=== PATIENT | female | born 1975 | race African-American/Black ===

== ENCOUNTER 2016-04-08 03:10 | Inpatient (IN) | payer OTHER, MEDICARE ==
[~2016-04-08] VITALS: Ht 160 cm; Wt 54.4 kg
[~2016-04-08 03:10] MED LIST: BACLOFEN10 M1 PO; CRANBERRY500 M1 PO; DAILY MULTIPLE1 EACH PO; ESCITALOPRAM OX10 MG PO; FERROUS SULFAT325 M3 PO; SENNA8.6 M3 PO; TECFIDERA240 M2 PO; VITAMIN D31000 UNI1 PO
--- NOTE | 2016-04-23 20:07 | History & Physical ---
TABITHA ARTEAGA,IVAN 04/23/161918: General Information and HPI MD Statement: I have seen and personally examined CHIKIS CROWDER and documented this H&P. The patient is a 41 year old F who presented with a patient stated chief complaint of [S/P SURGERY]. Source of Information: patient, old records Exam Limitations: clinical condition History of Present Illness: This is a 41 y/o woman with a PMH of Multiple Sclerosis, wheelchair bound, who underwent placement of a buttock flap on 04/23/2016 for a sacral decubitus ulcer. She is currently being admitted to the General Medicine service for futher management of ther condition and eventual custodial placement. Her Father Jose Crowder ([phone]) is her POA and was the person giving consent for surgery. She is a non-smoker and a non-drinker. She was interviewed in the PACU and has some difficulty speaking. She denies any current chest pain, shortness of breath , any new weakness at this time, headache, dizziness etc. She has a baclofen pump for management of spasms associated with her MS. She is currently being admitted to the General Medicine floor as she is likely to require 2-3 weeks of specialty bed and would therefore require to be placed. In the OR, cultures were taken from the sacral area. Depending upon the results, ID consult will have to be placed for further antibiotic management. Allergies/Medications Allergies: Coded Allergies: No Known Allergies (04/07/16) PER PRE-OP ORDER SHEET. -CG 04/07/16 1510 Home Med list Baclofen 10 MG TABLET 1 TAB PO TID BLADDER (Reported) Cephalexin 500 MG CAPSULE 500 MG PO Q6 UTI Cholecalciferol (Vitamin D3) (Vitamin D3) 1,000 UNIT CAPSULE 1 CAP PO DAILY SUPP (Reported) Cranberry 500 MG CAPSULE 1 PO D SUPP (Reported) Dimethyl Fumarate (Tecfidera) 240 MG CAPSULE.DR 1 PO BID MS (Reported) Escitalopram Oxalate 10 MG TABLET 1 TAB PO DAILY DEPRESSION (Reported) Ferrous Sulfate 325 MG (65 MG IRON) TABLET 1 TAB PO BID SUPP (Reported) Multivitamin (Daily Multiple Vitamin) 1 EACH TABLET 1 TAB PO DAILY SUPP ( Reported) Sennosides (Senna) 8.6 MG TABLET 2 TAB PO BID CONSTIPATION (Reported) Compliance With Home Meds: GOOD Past History Medical History Neurological: multiple sclerosis Isolation History: Standard Surgical History Surgical History: buttock flap placement on 04/23/16 Past Family/Social History Family History Relations & Conditions if any Relation not specified for: *No pertinent family history Psychosocial History Smoking Status: Never Smoked ETOH Use: denies use Functional Ability Ambulation: wheelchair dependent Review of Systems Review of Systems Constitutional: Reports: see HPI. Exam & Diagnostic Data Last 24 Hrs of Vital Signs/I&O Vital Signs Date Time Temp Pulse Resp B/P Pulse O2 O2 Flow FiO2 Ox Delivery Rate 04/30 0733 97.8 122 20 102/62 100 Room Air 04/29 2241 98.6 128 20 118/7 100 / 1600 Room Air 04/29 1432 97.6 110 18 112/60 98 Room Air 04/29 0748 98.9 109 20 112/62 99 Room Air 04/28 2306 99.4 125 20 118/72 99 Room Air 04/28 1520 97.8 110 18 110/60 98 Room Air 04/28 1333 Room Air 04/28 0846 Room Air 04/28 0836 98.2 110 18 114/80 98 Room Air 04/28 0003 98.6 109 18 120/80 99 Room Air 04/27 1800 98.5 133 18 115/55 100 Room Air 04/27 1652 102.5 150 24 116/88 98 Room Air 04/27 1630 102.4 02/ 1505 Room Air 04/27 0818 98.4 96 18 108/70 98 Room Air 04/27 0112 98.5 91 18 112/75 100 Room Air 04/26 1630 112/68 04/26 1629 98.4 103 18 100 Room Air 04/26 0836 98.1 93 18 100/60 98 Room Air 04/25 2343 98.6 103 20 103/62 99 Room Air 04/25 1629 98.7 120 19 107/63 100 Room Air 04/25 0817 98.1 100 20 100/60 95 Room Air 04/25 0124 98.2 116 20 100/57 97 Room Air 04/24 1632 98.6 131 20 100/68 97 04/24 0817 98.1 107 20 118/61 98 Room Air 04/24 0355 112 04/24 0218 120 04/24 0101 112 04/24 0002 98.1 126 20 106/76 97 02/24 2045 98.2 111 16 110/80 97 Room Air Laboratory Tests 04/29/16 2143: CBC w Diff NO MAN DIFF REQ, RBC 3.18 L, MCV 77.1 L, MCH 25.4 L, RDW 18.8 H, MPV 8.5, Gran % 88.2 H, Lymphocytes % 6.6 L, Monocytes % 3.9, Eosinophils % 1.1, Basophils % 0.2, Absolute Granulocytes 12.3 H, Absolute Lymphocytes 0.9 L , Absolute Monocytes 0.5, Absolute Eosinophils 0.2, Absolute Basophils 0, PUBS MCHC 32.9 L Microbiology Date/Time Procedure - Status Source Growth 04/28 1900 Clostridium difficile Toxin A & B - COMP STOOL 04/27 181 Urine Culture - COMP URINE ROUT ESCHERICHIA COLI 04/27 162 Influenza Virus A & B Rapid Smear - CAN NASOPHARYN Cancelled: NO Q FLU COLLECTED 04/27 162 Blood Culture - CAN BLOOD Cancelled: SPECIMEN NOT RECEIVED IN LABORATORY 04/23 1730 Culture & Sensitivity - COMP TRUNK/O.R. 04/23 1730 Gram Stain - COMP TRUNK/O.R. Orders Procedure Date/time Status TYPE & SCREEN (NOT X-MATCH) 04/29 2146 Complete CBC WITHOUT DIFFERENTIAL 04/29 2129 Complete MAGNESIUM 04/29 0600 Complete CBC WITHOUT DIFFERENTIAL 04/29 0600 Complete BASIC ELECTROLYTES PLUS BUN&CR 04/29 0600 Complete Anticipated Discharge 04/29 UNK Active C.DIFFICILE 04/28 1900 Complete BASIC ELECTROLYTES PLUS BUN&CR 04/28 0744 Complete CBC WITHOUT DIFFERENTIAL 04/28 06 Complete URINALYSIS 04/27 1626 Complete EKG 04/27 1623 Active CULTURE,URINE 04/27 162 Complete Anticipated Discharge 04/27 UNK Active MISSING MEDICATION FORM 04/27 UNK Active Physical Exam General Appearance Alert, Oriented X3, Cooperative, No Acute Distress HEENT Atraumatic, PERRLA, dry mucous membranes Cardiovascular Regular Rate, Normal S1, Normal S2, No Murmurs Lungs Clear to Auscultation, Normal Air Movement Abdomen Normal Bowel Sounds, Soft, No Tenderness Neurological complete neuro exam could not be done considering the patient had a recent surgery done. Extremities No Tenderness/Swelling Diagnostic Data EKG Results Done one 04/19/2016: Sinus Tachycardia with no ST-T wave changes. Assessment/Plan Assessment: This is a 41 y/o woman with a PMH of MS (wheelchair bound) who presented to [facility] for placement of a buttock flap for a decubitus ulcer. She is currently being admitted to the General Medicine floor for further management and custodial placement. Problem List: S/P Placement of buttock flap for sacral decubitus ulcer Multiple Sclerosis Plan: - Admit to General Medicine - Currently the patient is in the PACU. Surgery will consult for post operative management of the flap. - She is on a Baclofen pump for management of spasms, which will be continued. - Continue home medications starting tomorrow. - She will likely need placement as she needs 2-3 weeks of a specialty bed. - Full Code (Please confirm with the Father, as he is the POA). - DVT PPx: SubQ Heparin - Pain Pathway: Tylenol PRN As Ranked By This Provider Problem List: 1. Sacral decubitus ulcer Core Measures/Miscellaneous Acute Coronary Syndrome ACS Diagnosis: No Cerebrovascular Accident CVA/TIA Diagnosis: No Congestive Heart Failure CHF Diagnosis: No Venous Thromboembolism VTE Risk Factors: Inflammatory bowel Dx VTE Prophylaxis Ordered Inpt: Mechanical (ALPS/TEDS) No Mech VTE prophylaxis d/t: No contraindications No VTE Pharm Prophylaxis d/t: Surgical contraindication VTE Diagnosis: No VTE Type: NONE VTE Confirmed by (Test): NONE Severe Sepsis Severe Sepsis Present: No Septic Shock Septic Shock Present: No Miscellaneous Documentation Attending Case Discussed With: VIRGEN SILVERIO MD Primary Care Physician: ESTEFANY BUNDY MD Patient sees these Specialists Plastic Surgery: Dr. Silverio Level of Patient Care: General Medicine Consults Needed: Consulting Specialty: Plastic Surgery Consulting Physician: Dr. Silverio Resident Review Statement Resident Statement: admitted by resident BRE ARTEAGA, [facility] 04/23/16 2007: Attending MD Review Statement Attending Statement Attending MD Statement: examined this patient, discuss w/resident/PA/SUPERVISOR CARTOGRAPHY, agreed w/resident/PA/SUPERVISOR CARTOGRAPHY Attending Assessment/Plan: 41 yo unfortunate F with h/o multiple sclerosis, wheelchair bound, is admitted to after a buttock flap procedure done for sacral decubitus ulcer by Dr. Silverio (Plastic surgery). Patient denies any symptoms as such. She has a baclofen pump. Vitals stable except for tachycardia. Exam: extremity contractures++, Chest b/l clear. No labs done prior to OR. Plan is to admit to , obtain CBC, BEP, Mag, continue flap/wound care management per Plastic surgery, clintron bed, baclofen pump for pain management. Advance diet, IV fluids. Await OR culture reports and taper antibiotics accordingly. Consider ID consult. She is likely to require 2-3 weeks of specialty bed with long-term placement. Continue Tecfidra and baclofen PO. DVT ppx Hep SC. Full code. (This needs to be confirmed with patient's father in AM).
--- NOTE | 2016-04-23 20:38 | NUR ---
PATIENT ARRIVED TO FLOOR AT 2015 FROM PACU, S/P WOUND DEBRIDEMENT-BUTTOCK FLAP VS 98.2 111 16 110/80 97% ROOM AIR ALERT, NON VERBAL, W/C AT BASELINE (PT'S W/C IS IN HALLWAY-LABELED WITH NAME AND ROOM #) DOES NOT MOVE ARMS OR LEGS, CONTRACTED INCONTINTNET OF B & B DSG OF ABD PADS & XEROFORM? FROM LOWER BACK TO TOP OF BUTTOCKS MORGAN DRAIN IN PLACE TO L SIDE PT ARRIVED WITH EMPTY BAG OF LR WITH BLOOD TRANSFUSION TUBING IV #22 TO RIGHT HAND POINTER FINGER PLACED TODAY, WRAPPED WITH KERLEX NO FLUIDS RUNNING AT THIS POINT THERE WERE MINIMAL ORDERS AT TIME OF ARRIVAL QUESTIONED DR JON #[phone] REGARDING PALACIO CATHETER? CONTAMINATING DRESSING?? PT'S OWN WOUND VAC IN ROOM-FAMILY IS SUPPOSED TO BRING HOME. NO FAMILY PRESENT AT TIME OF ADMISSION. DR DÍAZ AT BEDSIDE NOW - 2044 PT ORIENTED TO ROOM AND CALL ANTHONY WILL CONTINUE TO MONITOR.
[2016-04-23 20:45] VITALS: BP 110/80
--- NOTE | 2016-04-23 22:22 | NUR ---
PROCESSED ADMISSION BEST POSSIBLE FROM CHART AND WHAT INFORMATION I COULD GET FROM PATIENT.
--- NOTE | 2016-04-23 22:35 | NUR ---
SPOKE WITH DR BATEMAN REGARDING DIET AND IVF (NOTHING ORDERED) WILL SPEAK WITH RESIDENT AND GET BACK TO US
[2016-04-24 00:02] VITALS: BP 106/76
--- NOTE | 2016-04-24 00:15 | NUR ---
NSG NOTE: PT TACHYCARDIC 120'S-130, BLOOD PRESSURE 107/76, TEMP 98.1, O2 SAT 97% ON ROOM AIR. MD JON CALLED AND NOTIFIED. PER , RECHECK HR IN ONE HOUR. WILL MONITOR.
--- NOTE | 2016-04-24 01:19 | NUR ---
NSG NOTE: PT HR RECHECKED AND NOW 112. MD JON AWARE. WILL CONTINUE TO MONITOR
--- NOTE | 2016-04-24 06:25 | NUR ---
NURSING NOTE: PT'S PALACIO OUTPUT OVERNIGHT WAS 125ML. MD JON CALLED AND NOTIFIED. PT HAS NO C/O BLADDER FULLNESS OR PRESSURE. ABDOMEN NOT DISTENDED. WILL CONTINUE TO MONITOR.
--- NOTE | 2016-04-24 06:34 | Admission Certification ---
Admission Certification Certification Statement - As attending physician, I certify that at the time of - admission, based on clinical presentation, severity of - symptoms, need for further diagnostic testing and - therapeutic interventions, and risk of adverse outcomes - without in-hospital treatment, in my clinical assessment, - this patient requires an acute hospital stay for a minimum - of two nights or longer. I have also considered psychsocial - factors such as support system, advanced age, financial - issues, cognitive issues, and failed out-patient treatments, - past re-admission history, safety of patient, and lack of - compliance as applicable. Specific rationale supporting this admission is: 41 yo F with multiple sclerosis, wheelchair bound is here s/p flap procedure for sacral decubitus ulcer. Needs inpatient stay for wound care and eventual summer child caregiver placement.
[2016-04-24 08:17] VITALS: BP 118/61
[2016-04-24 11:24] LABS: ABSOLUTE BASOPHIL COUNT 0 /CUMM (0.0-0.2); ABSOLUTE EOSINOPHIL COUNT 0 /CUMM (0.0-0.7); ABSOLUTE GRANULOCYTE CT 8.1 /CUMM (1.4-6.5); ABSOLUTE LYMPH COUNT 1.6 /CUMM (1.2-3.4); ABSOLUTE MONOCYTE COUNT 0.8 /CUMM (0.10-0.60); BASOPHIL % 0.4 % (0.0-2.0); EOSINOPHIL % 0.2 % (0-5); GRANULOCYTE % 76.6 % (42.2-75.2); HEMATOCRIT 28.8 % (37-47); MEAN CORPUSCULAR HGB 24.9 PG (27.0-31.0); MEAN CORPUSCULAR VOLUME 77.8 FL (81.0-99.0); MEAN PLATELET VOLUME 8.7 FL (7.4-10.4); PLATELET COUNT 262 /CUMM (130-400); WHITE BLOOD CELL COUNT 10.6 /CUMM (4.8-10.8)
--- NOTE | 2016-04-24 12:18 | PN- Att Addend ---
Attending Addendum Attending Brief Note 41-year-old patient of Dr. Charles Kline 1 and underwent placement of a Botox flat yesterday. Transferred over to the general medical service to assist in long- term placement of the patient. Have been no issues overnight. She is currently alert and oriented 3. Though she struggles to express herself how words are comprehensible and appropriate. She denies pain. Denies shortness of breath. She desires a diet to be upgraded. She is in good spirits given her overall medical condition. Vital Signs Date Time Temp Pulse Resp B/P Pulse O2 O2 Flow FiO2 Ox Delivery Rate 04/24 0817 98.1 107 20 118/61 98 Room Air 04/24 0355 112 04/24 0218 120 04/24 0101 112 04/24 0002 98.1 126 20 106/76 97 04/23 2045 98.2 111 16 110/80 97 Room Air Gen. appearance: Lean, not in acute distress. Heart: S1-S2 regular Lungs: Good entry bilaterally, clear to auscultation Abdomen: Soft, nontender Extremities: No pedal edema Laboratory Tests 04/24/16 1110: CBC w Diff MAN DIFF ORDERED, RBC 3.70 L, MCV 77.8 L, MCH 24.9 L, RDW 18.0 H, MPV 8.7, Gran % 76.6 H, Lymphocytes % 15.0 L, Monocytes % 7.8, Eosinophils % 0.2, Basophils % 0.4, Absolute Granulocytes 8.1 H, Segmented Neutrophils Pending, Absolute Lymphocytes 1.6, Absolute Monocytes 0.8 H, Absolute Eosinophils 0, Absolute Basophils 0, PUBS MCHC 32.0 L 04/24/16 0642: Anion Gap 9, Estimated GFR > 60, BUN/Creatinine Ratio 17.5, Magnesium 1.8 04/23/16 1500: Total Beta HCG NEGATIVE Microbiology 04/23 2100 URINE ROUT: Urine Culture - RES 04/23 1730 TRUNK/O.R.: Culture & Sensitivity - RECD 04/23 173 TRUNK/O.R.: Gram Stain - RECD Problems: 1. Decubitus ulcer status post flap yesterday by Dr. Charles Kline 2. Multiple sclerosis Plan: -Follow-up with the service of Dr. Charles Kline and his intraoperative notes once available to determine extent of the ulcer, any concern for osteomyelitis and wound care recommendations. -Follow-up culture reports. -Case management has been notified regarding the need for placement. -Continue baclofen for spasticity. -Advance diet. -I will attempt to reach the father again to discuss management plan.
[2016-04-24 16:32] VITALS: BP 100/68
[2016-04-25 01:24] VITALS: BP 100/57
--- NOTE | 2016-04-25 08:02 | PN- Housestaff ---
ARIC CEDILLO 04/25/16 0801: Subjective Follow-up For: Muscular spasms secondary to multiple sclerosis Subjective: She was comfortable this morning. Vitals were stable overnight. Could not examine the wound, as the dressing was in place. Remained afebrile overnight. Stated that she did not have any complaints. Review of Systems Constitutional: Reports: see HPI. Objective Last 24 Hrs of Vital Signs/I&O Vital Signs Date Time Temp Pulse Resp B/P Pulse O2 O2 Flow FiO2 Ox Delivery Rate 04/25 0124 98.2 116 20 100/57 97 Room Air 04/24 1632 98.6 131 20 100/68 97 04/24 0817 98.1 107 20 118/61 98 Room Air Intake & Output 04/25 1600 04/25 0800 04/25 0000 Intake Total 100 Output Total 220 340 Balance -220 -240 Intake, Oral 100 Number 1 Bowel Movements Output, 20 40 Drainage Output, Urine 200 300 Physical Exam General Appearance: No Acute Distress Other Physical Findings: General Exam: AAOx3, No acute distress, Skin: Examination of ulcer could not be done. HEENT: PERRLA, EOMI Neck: Supple, No JVD No cervical lymphadenopathy CVS: Reg Rate, Normal S1,S2, No MGR Resp: Normal air entry, no ronchi/rales Abdomen: Soft, No tenderness, Normal Bowel Sounds Neuro: Limited neuro exam Extremities: No cyanosis, pedal edema Current Medications: Current Medications Sig/Tim Start time Last Medication Dose Route Stop Time Status Admin Acetaminophen 650 MG Q6P PRN 04/235 AC PO Baclofen 10 MG TID 04/23 2200 AC 04/24 PO 2042 Escitalopram Oxalate 10 MG DAILY 04/24 1000 AC 04/24 PO 1104 Heparin Sodium 5,000 UNIT Q8 04/24 0600 AC 04/25 (Porcine) SC 0545 Non-Formulary 0 SEE ADMIN CRITERIA 04/23 2100 UNV Medication ANY Sodium Chloride 1,000 ML Q20H 04/23 2245 DC 04/23 IV 04/24 1844 2252 Last 24 Hrs of Lab/Julien Results Last 24 Hrs of Labs/Mics: Laboratory Tests 04/24/16 1110: CBC w Diff MAN DIFF ORDERED, RBC 3.70 L, MCV 77.8 L, MCH 24.9 L, RDW 18.0 H, MPV 8.7, Gran % 76.6 H, Lymphocytes % 15.0 L, Monocytes % 7.8, Eosinophils % 0.2, Basophils % 0.4, Absolute Granulocytes 8.1 H, Absolute Lymphocytes 1.6, Absolute Monocytes 0.8 H, Absolute Eosinophils 0, Absolute Basophils 0, Platelet Estimate VERIFIED BY SMEAR, Hypochromic-Microcytic 1+, Anisocytosis 1+, Microcytic Cells 1+, PUBS MCHC 32.0 L Assessment/Plan Assessment: She is a young woman with a past history of multiple sclerosis who was evaluated after placement of a buttock flap for the treatment of decubitus ulcer by Dr. Strange. She is being managed on general medicine floor for finding of long-term placement. Differential diagnosis #1 medical management status post treatment of decubitus ulcer #2 multiple sclerosis Below is the problem list and plan: #1 management of decubitus ulcer-await recommendation from Dr. Strange for wound care management. Currently dressing in place. Monitor for any fever or signs of infection. Discuss with Dr. Strange for any concern for osteomyelitis. #2 multiple sclerosis-currently on baclofen. Continue to manage with tecfidera. Continue Lexapro for mental health. #3 goals of care-to discuss with the family in the a.m. about goals of care. #4 DVT prophylaxis-heparin. #5 anemia-likely from iron deficiency anemia or anemia of chronic disease. MCV 77.8, RDW 18.0. Check iron studies. Guaiac stools. Problem List: 1. Multiple sclerosis Pain Ratin Pain Location: Bilateral lower extremities Pain Goal: Pain 4 or less Pain Plan: Baclofen Tomorrow's Labs & Rationales: CBC-to monitor for leukocytosis and H&H. Consulting Request: Consulting Specialty: Plastic Surgery Consulting Physician: Dr. Eliud LIMA MD,[facility] 04/25/16 1034: Attending MD Review Statement Attending Statement Attending MD Statement: examined this patient, discuss w/resident/PA/RESIDENTIAL ROOFER, agreed w/resident/PA/RESIDENTIAL ROOFER, reviewed EMR data (avail), discussed with nursing, amended to note Attending Assessment/Plan: Patient seen and examined. Resting comfortably limits in any acute distress. No issues overnight. She is tolerating her diet with no complaints. She denies any pain at present. She is afebrile and hemodynamically stable. She has no leukocytosis on her labs. She is noted to be anemic in the room also today compared to yesterday. She also shows evidence of microcytosis. We have no baseline for comparison here. Nursing staff report that there is no bleeding from surgical site. Recommendations: -Check iron profile. Follow-up with primary care provider for baseline hemoglobin levels. -Repeat H&H tomorrow to rule out ongoing bleeding. -Continue local wound care. -Discharge planning to group home facility with appropriate resources for wound care. -Awaiting surgical operative notes, follow-up, cultures and pathology report. Case discussed with surgical PA.
[2016-04-25 08:17] VITALS: BP 100/60
[2016-04-25 08:58] LABS: ABSOLUTE BASOPHIL COUNT 0 /CUMM (0.0-0.2); ABSOLUTE EOSINOPHIL COUNT 0 /CUMM (0.0-0.7); ABSOLUTE GRANULOCYTE CT 6.2 /CUMM (1.4-6.5); ABSOLUTE LYMPH COUNT 1.5 /CUMM (1.2-3.4); ABSOLUTE MONOCYTE COUNT 0.7 /CUMM (0.10-0.60); BASOPHIL % 0.2 % (0.0-2.0); EOSINOPHIL % 0.6 % (0-5); GRANULOCYTE % 73.7 % (42.2-75.2); HEMATOCRIT 25.3 % (37-47); MEAN CORPUSCULAR HGB 25.2 PG (27.0-31.0); MEAN CORPUSCULAR HGB CONC 32.4 G/DL (33.0-37.0); MEAN CORPUSCULAR VOLUME 77.7 FL (81.0-99.0); MEAN PLATELET VOLUME 8.6 FL (7.4-10.4); PLATELET COUNT 257 /CUMM (130-400); RBC DISTRIBUTION WIDTH 18.2 % (11.5-14.5); RED BLOOD CELL CT 3.26 /CUMM (4.20-5.40); WHITE BLOOD CELL COUNT 8.4 /CUMM (4.8-10.8)
[2016-04-25 16:29] VITALS: BP 107/63
--- NOTE | 2016-04-25 20:43 | NUR ---
PT'S COUSIN, BRIANDA, AND HER FATHER, XIANG, TOOK WOUND VAC HOME WITH THEM TONIGHT. BRIANDA SAYS SHE WILL BRING PT'S NEW HOME MED, TECFIDERA, TO THE HOSPITAL TOMORROW.
[2016-04-25 23:43] VITALS: BP 103/62
--- NOTE | 2016-04-26 08:32 | Discharge Summary ---
Visit Information Visit Dates Admission Date: 04/23/16 Discharge Date: 05/02/2016 Hospital Course Course Attending Physician: LINDA RUBIN MD Primary Care Physician: NIHARIKA ARTEAGA,ESTEFANY Cortés Consulting Request: Consulting Specialty: Plastic Surgery Consulting Physician: Dr. Kline Hospital Course: This is a 41 y/o woman with a PMH of MS (wheelchair bound) who presented to [facility] for placement of a buttock flap for a decubitus ulcer. She is currently being admitted to the General Medicine floor for further management and detention placement. She had placement of buttock flap for a sacral decubitus ulcer on . She was continued on her home medications including Tecfidera and Baclofen pump. She will be discharged to [facility] as she needs a [place] bed for 2- 3 weeks. As c&S of the area did not grow any organisms at the time of hospitalization, the patient was not started on any antibiotics. Addendum added by Dr. Tineo on 04/29/2016 at 11:03 AM. During her hospital stay patient developed fever and leukocytosis. She was started on ceftriaxone after urine analysis/culture was obtained. Urine culture grew Escherichia coli pansensitive. She was continued on 2 days of IV ceftriaxone followed by by mouth medications to complete a total course of 14 days. J-P drain was placed in the sacral wound. Wound remained clean. She had evidence of increased bleeding from the staple line. He was evaluated by surgical PA approximated the skin edges with chanelle. MORGAN drain in place. She will follow up with Dr. Kline in his office in a week via Stretcher. Hospital course further complicated by acute drop in H/H even though there was no active evidence of bleeding. Guaic stools was checked. She received 1 Unit on PRBC and her repeat H/H WNL. Her buttock wound was still draining some serosanguinious secretion and she should follow up with Plastic surgery as outpatient. Allergies: Coded Allergies: No Known Allergies (04/07/16) PER PRE-OP ORDER SHEET. -CG 04/07/16 1510 Significant Procedures: Placement of buttock flap on 04/23/[address] Kline. Pertinent Lab Results: Laboratory Tests 05/02 05/01 0845 1240 Chemistry Sodium (137 - 145 mmol/L) 136 L 140 Potassium (3.5 - 5.1 mmol/L) 4.2 4.7 Chloride (98 - 107 mmol/L) 106 104 Carbon Dioxide (22 - 30 mmol/L) 25 30 Anion Gap (5 - 16) 5 7 BUN (7 - 17 mg/dL) 8 7 Creatinine (0.5 - 1.0 mg/dL) 0.3 L 0.5 Estimated GFR (>60 ml/min) > 60 > 60 BUN/Creatinine Ratio (7 - 25 %) 26.7 H 14.0 Hematology CBC w Diff NO MAN DIFF REQ NO MAN DIFF REQ WBC (4.8 - 10.8 /CUMM) 6.7 7.6 RBC (4.20 - 5.40 /CUMM) 3.52 L 2.73 L Hgb (12.0 - 16.0 G/DL) 8.9 L 6.8 *L Hct (37 - 47 %) 27.8 L 21.5 L MCV (81.0 - 99.0 FL) 78.8 L 78.6 L MCH (27.0 - 31.0 PG) 25.4 L 24.9 L RDW (11.5 - 14.5 %) 17.7 H 18.5 H Plt Count (130 - 400 /CUMM) 343 344 MPV (7.4 - 10.4 FL) 7.5 8.1 Gran % (42.2 - 75.2 %) 71.4 83.3 H Lymphocytes % (20.5 - 51.1 %) 19.1 L 9.6 L Monocytes % (1.7 - 9.3 %) 7.5 5.6 Eosinophils % (0 - 5 %) 1.8 1.1 Basophils % (0.0 - 2.0 %) 0.2 0.4 Absolute Granulocytes (1.4 - 6.5 /CUMM) 4.8 6.3 Absolute Lymphocytes (1.2 - 3.4 /CUMM) 1.3 0.7 L Absolute Monocytes (0.10 - 0.60 /CUMM) 0.5 0.4 Absolute Eosinophils (0.0 - 0.7 /CUMM) 0.1 0.1 Absolute Basophils (0.0 - 0.2 /CUMM) 0 0 PUBS MCHC (33.0 - 37.0 G/DL) 32.2 L 31.7 L 04/293 Hematology CBC w Diff NO MAN DIFF REQ WBC (4.8 - 10.8 /CUMM) 14.0 H RBC (4.20 - 5.40 /CUMM) 3.18 L Hgb (12.0 - 16.0 G/DL) 8.1 L Hct (37 - 47 %) 24.5 L MCV (81.0 - 99.0 FL) 77.1 L MCH (27.0 - 31.0 PG) 25.4 L RDW (11.5 - 14.5 %) 18.8 H Plt Count (130 - 400 /CUMM) 353 MPV (7.4 - 10.4 FL) 8.5 Gran % (42.2 - 75.2 %) 88.2 H Lymphocytes % (20.5 - 51.1 %) 6.6 L Monocytes % (1.7 - 9.3 %) 3.9 Eosinophils % (0 - 5 %) 1.1 Basophils % (0.0 - 2.0 %) 0.2 Absolute Granulocytes (1.4 - 6.5 /CUMM) 12.3 H Absolute Lymphocytes (1.2 - 3.4 /CUMM) 0.9 L Absolute Monocytes (0.10 - 0.60 /CUMM) 0.5 Absolute Eosinophils (0.0 - 0.7 /CUMM) 0.2 Absolute Basophils (0.0 - 0.2 /CUMM) 0 PUBS MCHC (33.0 - 37.0 G/DL) 32.9 L Laboratory Tests 04/29 04/28 0610 0710 Chemistry Sodium (137 - 145 mmol/L) 138 138 Potassium (3.5 - 5.1 mmol/L) 3.5 3.2 L Chloride (98 - 107 mmol/L) 105 107 Carbon Dioxide (22 - 30 mmol/L) 27 21 L Anion Gap (5 - 16) 6 10 BUN (7 - 17 mg/dL) 6 L 9 Creatinine (0.5 - 1.0 mg/dL) 0.3 L 0.3 L Estimated GFR (>60 ml/min) > 60 > 60 BUN/Creatinine Ratio (7 - 25 %) 20.0 30.0 H Magnesium (1.6 - 2.3 mg/dL) 1.8 Hematology CBC w Diff NO MAN DIFF REQ NO MAN DIFF REQ WBC (4.8 - 10.8 /CUMM) 12.0 H 16.1 H RBC (4.20 - 5.40 /CUMM) 2.97 L 3.17 L Hgb (12.0 - 16.0 G/DL) 7.5 L 8.1 L Hct (37 - 47 %) 23.2 L 25.0 L MCV (81.0 - 99.0 FL) 78.2 L 78.7 L MCH (27.0 - 31.0 PG) 25.4 L 25.5 L RDW (11.5 - 14.5 %) 18.7 H 18.8 H Plt Count (130 - 400 /CUMM) 265 260 MPV (7.4 - 10.4 FL) 8.3 8.6 Gran % (42.2 - 75.2 %) 86.4 H 89.6 H Lymphocytes % (20.5 - 51.1 %) 8.2 L 5.9 L Monocytes % (1.7 - 9.3 %) 4.4 4.0 Eosinophils % (0 - 5 %) 0.9 0.5 Basophils % (0.0 - 2.0 %) 0.1 0 L Absolute Granulocytes (1.4 - 6.5 /CUMM) 10.4 H 14.5 H Absolute Lymphocytes (1.2 - 3.4 /CUMM) 1.0 L 0.9 L Absolute Monocytes (0.10 - 0.60 /CUMM) 0.5 0.6 Absolute Eosinophils (0.0 - 0.7 /CUMM) 0.1 0.1 Absolute Basophils (0.0 - 0.2 /CUMM) 0 0 PUBS MCHC (33.0 - 37.0 G/DL) 32.5 L 32.4 L 04/27 Chemistry Lactic Acid Cancelled Urines Urinalysis LIGHT H Urine Color (YEL,AMB,STR) YEL Urine Clarity (CLEAR) HAZY H Urine pH (5.0 - 8.0) 6.5 Ur Specific Wharton (1.001 - 1.035) 1.010 Urine Protein (NEG,<30 MG/DL) NEG Urine Ketones (NEG) NEG Urine Nitrite (NEG) POS H Urine Bilirubin (NEG) NEG Urine Urobilinogen (0.1 - 1.0 EU/dl) 0.2 Ur Leukocyte Esterase (NEG) MOD H Ur Microscopic SEDIMENT EXAMINED Urine RBC (0 - 5 /HPF) 3-5 Urine WBC (0 - 2 /HPF) 15-25 H Ur Epithelial Cells (NONE,FEW) MOD H Urine Bacteria (NEG/NONE) MANY H Urine Hemoglobin (NEG) MOD H Urine Glucose (N MG/DL) NEG 04/27 04/27 1621 0600 Hematology CBC w Diff Cancelled Cancelled WBC Cancelled Cancelled RBC Cancelled Cancelled Hgb Cancelled Cancelled Hct Cancelled Cancelled MCV Cancelled Cancelled MCH Cancelled Cancelled RDW Cancelled Cancelled Plt Count Cancelled Cancelled MPV Cancelled Cancelled PUBS MCHC Cancelled Cancelled Disposition Summary Disposition Principal Diagnosis: Placment of buttock flap UTI Acute bloodloss anemia Additional Diagnosis: Multiple Sclerosis Discharge Disposition: SNF Discharge Instructions General Discharge Information Code Status: Full Code Patient's Diet: Regular Diet Patient's Activity: As tolerated Follow-Up Instructions/Appts: 1) Please make an appointment to see your PCP within one week from discharge. 2)Please make an appointment to see your neurologist within one week from discharge. 3) In three weeks, please follow up in the office of Dr Kline. You will be required to go in on a stretcher. 4) Daily wound care instructions: Xeroform + D5D to Incision QD. QD wipe H2O2 on incision plus prn with BM's. 5) Minimize blankets/sheets/chucks under the buttock (this reduces the effectiveness of the bed). Medications at Discharge Discharge Medications: Continue taking these medications: Multivitamin (Daily Multiple Vitamin) 1 EACH TABLET 1 Tablet ORAL DAILY Comments: NOT GIVEN IN HOSPITAL Baclofen (Baclofen) 10 MG TABLET 1 Tablet ORAL THREE TIMES DAILY Comments: Last Taken:05/02/16 Time: 1100 Ferrous Sulfate (Ferrous Sulfate) 325 MG (65 MG IRON) TABLET 1 Tablet ORAL TWICE DAILY Comments: Last Taken:05/02/16 Time: 1100 Escitalopram Oxalate (Escitalopram Oxalate) 10 MG TABLET 1 Tablet ORAL DAILY Comments: Last Taken:05/02/16 Time: 1100 Cholecalciferol (Vitamin D3) (Vitamin D3) 1,000 UNIT CAPSULE 1 Capsule ORAL DAILY Comments: NOT GIVEN IN HOSPITAL Sennosides (Senna) 8.6 MG TABLET 2 Tablet ORAL TWICE DAILY Comments: NOT GIVEN IN HOSPITAL Dimethyl Fumarate (Tecfidera) 240 MG CAPSULE. 1 ORAL TWICE DAILY Comments: Last Taken:05/02/16 Time: 1100 Cranberry (Cranberry) 500 MG CAPSULE 1 ORAL Every Day Comments: NOT GIVEN IN HOSPITAL Start taking the following new medications: Cephalexin (Cephalexin) 500 MG CAPSULE 500 Milligram ORAL EVERY SIX HOURS Days = 10 No Refills Comments: Last Taken:05/02/16 Time: 1100 Copies To: ESTEFANY BNUDY MD
[2016-04-26 08:36] VITALS: BP 100/60
[2016-04-26 09:12] LABS: ABSOLUTE BASOPHIL COUNT 0 /CUMM (0.0-0.2); ABSOLUTE EOSINOPHIL COUNT 0.2 /CUMM (0.0-0.7); ABSOLUTE GRANULOCYTE CT 6.4 /CUMM (1.4-6.5); ABSOLUTE LYMPH COUNT 1.9 /CUMM (1.2-3.4); ABSOLUTE MONOCYTE COUNT 0.5 /CUMM (0.10-0.60); BASOPHIL % 0.5 % (0.0-2.0); GRANULOCYTE % 70.8 % (42.2-75.2); HEMATOCRIT 23.8 % (37-47); MEAN CORPUSCULAR HGB 25.4 PG (27.0-31.0); MEAN CORPUSCULAR HGB CONC 32.7 G/DL (33.0-37.0); MEAN CORPUSCULAR VOLUME 77.7 FL (81.0-99.0); MEAN PLATELET VOLUME 8.8 FL (7.4-10.4); PLATELET COUNT 244 /CUMM (130-400); RBC DISTRIBUTION WIDTH 18.3 % (11.5-14.5); RED BLOOD CELL CT 3.06 /CUMM (4.20-5.40)
--- NOTE | 2016-04-26 09:58 | PN- Housestaff ---
ARIC CEDILLO 04/26/16 0958: Subjective Follow-up For: Decubitus ulcer-status post flap replacement. Subjective: The patient was comfortable this morning. She remained afebrile overnight. Did not have any complaints. Pain is adequately controlled. As per the patient's family, the patient does not have any Tecfedera medication at home. Called the patient's primary care provider-Dr. Hartman to confirm the medication list. As per the primary care provider, the patient sees urology-Dr. Shukri Salcedo. Takes Tecfedera to 40 mg by mouth twice a day. It was refilled a few days ago, and the nurse at the [facility] neurologists office confirmed that this medication would be delivered at the patient's home this afternoon. As per the nurse, the patient's family has been informed to bring the medication over to different hospital as soon as possible to be able to dispense it to the patient. Discussed with our in-house pharmacist. Nurse made aware. Discussed about the wound care with Dr. Strange. As per Dr. Strange, wound has to be washed daily with hydrogen peroxide. The pharmacy is not aware of the reconstitution of hydrogen peroxide. Called the surgical PA, who was also unaware, if 3% hydrogen peroxide could be used or reconstituted one-to-one dilution to be used. Nursed made aware. To discuss with Dr. Strange in the a.m. Review of Systems Constitutional: Reports: see HPI. Objective Last 24 Hrs of Vital Signs/I&O Vital Signs Date Time Temp Pulse Resp B/P Pulse O2 O2 Flow FiO2 Ox Delivery Rate 04/26 1629 98.4 103 18 100 Room Air 04/26 0836 98.1 93 18 100/60 98 Room Air 04/25 2343 98.6 103 20 103/62 99 Room Air Intake & Output 04/26 1600 04/26 0800 04/26 0000 Intake Total 240 480 480 Output Total 550 390 200 Balance -310 90 280 Intake, Oral 240 480 480 Number 1 2 Bowel Movements Output, 40 Drainage Output, Urine 550 350 200 Patient 120 lb Weight Physical Exam General Appearance: No Acute Distress Other Physical Findings: General Exam: AAOx3, No acute distress, Skin: No rashes, no breakdown HEENT: PERRLA, EOMI Neck: Supple, No JVD No cervical lymphadenopathy CVS: Reg Rate, Normal S1,S2, No MGR Resp: Normal air entry, no ronchi/rales Abdomen: Soft, No tenderness, Normal Bowel Sounds Neuro: Limited neurological exam. Extremities: No cyanosis, pedal edema, chanelle in place in the lower back extending up to sacrum. No drainage seen. A drain is placed. Assessment/Plan Assessment: She is a young woman with a past history of multiple sclerosis who was evaluated after placement of a buttock flap for the treatment of decubitus ulcer by Dr. Strange. She is being managed on general medicine floor for finding of long-term placement. Differential diagnosis #1 medical management status post treatment of decubitus ulcer #2 multiple sclerosis Below is the problem list and plan: #1 management of decubitus washed with hydrogen peroxide daily. Valdovinos catheter to be removed, as per Dr. Strange. Currently dressing in place. Monitor for any fever or signs of infection. Follow culture sensitivities taken from the operating room. Rule out osteomyelitis. #2 multiple sclerosis-currently on baclofen. Continue to manage with tecfidera. Continue Lexapro for mental health. #3 goals of care-to discuss with the family in the a.m. about goals of care. #4 DVT prophylaxis-heparin. #5 anemia-likely from iron deficiency anemia or anemia of chronic disease. MCV 77.8, RDW 18.0. Check iron studies. Problem List: 1. Multiple sclerosis Pain Ratin Pain Location: Back Pain Goal: Pain 4 or less Pain Plan: Baclofen Tomorrow's Labs & Rationales: CBC-to monitor for low H&H. Consulting Request: Consulting Specialty: Plastic Surgery Consulting Physician: Dr. Eliud RUBIN MD,[facility] 04/26/16 1212: Attending MD Review Statement Attending Statement Attending MD Statement: examined this patient, discuss w/resident/PA/MACHINE TRY OUT SETTER, agreed w/resident/PA/MACHINE TRY OUT SETTER, discussed with family, reviewed EMR data (avail), discussed with nursing, discussed with case mgmt, amended to note Attending Assessment/Plan: Patient seen and examined, she denies any complaints. She is status post buttock flap for decubitus ulcer. Patient has a history off from multiple sclerosis on the feet dropped. She is wheelchair-bound. Vital Signs Date Time Temp Pulse Resp B/P Pulse O2 O2 Flow FiO2 Ox Delivery Rate 04/26 0836 98.1 93 18 100/60 98 Room Air 02/26 2343 98.6 103 20 103/62 99 Room Air 04/25 1629 98.7 120 19 107/63 100 Room Air on exam; aox3, nad. cv; s1,s2, rrr. resp; clear abd; soft, nt, bs+ ext; no edema skin; + drain in and chanelle on right buttock flap. Laboratory Tests 04/26 04/25 0650 1444 Chemistry Iron (37 - 170 ug/dL) 20 L TIBC (265 - 497 ug/dL) 247 L Ferritin (6.24 - 137 ng/mL) 27.6 Hematology CBC w Diff NO MAN DIFF REQ WBC (4.8 - 10.8 /CUMM) 9.0 RBC (4.20 - 5.40 /CUMM) 3.06 L Hgb (12.0 - 16.0 G/DL) 7.8 L Hct (37 - 47 %) 23.8 L MCV (81.0 - 99.0 FL) 77.7 L MCH (27.0 - 31.0 PG) 25.4 L RDW (11.5 - 14.5 %) 18.3 H Plt Count (130 - 400 /CUMM) 244 MPV (7.4 - 10.4 FL) 8.8 Gran % (42.2 - 75.2 %) 70.8 Lymphocytes % (20.5 - 51.1 %) 21.2 Monocytes % (1.7 - 9.3 %) 5.5 Eosinophils % (0 - 5 %) 2.0 Basophils % (0.0 - 2.0 %) 0.5 Absolute Granulocytes (1.4 - 6.5 /CUMM) 6.4 Absolute Lymphocytes (1.2 - 3.4 /CUMM) 1.9 Absolute Monocytes (0.10 - 0.60 /CUMM) 0.5 Absolute Eosinophils (0.0 - 0.7 /CUMM) 0.2 Absolute Basophils (0.0 - 0.2 /CUMM) 0 PUBS MCHC (33.0 - 37.0 G/DL) 32.7 L A/P; 41-year-old female with history of multiple sclerosis who is wheelchair- bound, she status post right buttock flap for the decubitus ulcer. She still has a catheter in for drainage of the wound. Wound care per surgery. Please contact [facility] to find out about Tedfidra dosing. Continue baclofen and Lexapro. DVT prophylaxis: Heparin subcutaneous. Patient likely needs placement.
[2016-04-26 16:30] VITALS: BP 112/68
[2016-04-27 01:12] VITALS: BP 112/75
--- NOTE | 2016-04-27 06:04 | PN- Housestaff ---
BHAVANA ARTEAGA,DANAY 04/27/16 0602: Subjective Follow-up For: S/P Flap for Sacral Decubitus Ulcer. Subjective: Ms Crowder was seen and examined morning. States that she feels good. Patient states that she slept well. She has no active complaints. She denies any pain. She denies any fever, chills, nausea, vomiting. Spoke with the patient's cousin on #[phone]. Cousin is to bring the medication (Tecfidera) in which was dropped off yesterday from neurologist at [facility]. Patient sees Dr. Shukri Salcedo at [facility]. Review of Systems Constitutional: Reports: see HPI. Objective Last 24 Hrs of Vital Signs/I&O Vital Signs Date Time Temp Pulse Resp B/P Pulse O2 O2 Flow FiO2 Ox Delivery Rate 04/27 0818 98.4 96 18 108/70 98 Room Air 04/27 0112 98.5 91 18 112/75 100 Room Air 04/26 1630 112/68 04/26 1629 98.4 103 18 100 Room Air Intake & Output 04/27 1600 04/27 0800 04/27 0000 Intake Total Output Total 40 Balance -40 Number 1 Bowel Movements Output, 40 Drainage Physical Exam General Appearance: Alert, Oriented X3, Cooperative, No Acute Distress Cardiovascular: Normal S1, Normal S2 Lungs: Clear to Auscultation, Normal Air Movement Abdomen: Normal Bowel Sounds, Soft, No Tenderness Extremities: No Clubbing, No Cyanosis, No Edema Vascular: Normal Pulses Current Medications: Current Medications Sig/Tim Start time Last Medication Dose Route Stop Time Status Admin Acetaminophen 650 MG Q6P PRN 04/23 2115 AC PO Baclofen 10 MG TID 04/23 2200 AC 04/26 PO 2103 Escitalopram Oxalate 10 MG DAILY 04/24 1000 AC 04/26 PO 1021 Heparin Sodium 5,000 UNIT Q8 04/24 0600 AC 04/27 (Porcine) SC 0642 Non-Formulary 0 SEE ADMIN CRITERIA 04/23 2100 UNV Medication ANY Patient Medication 1 ED .STK-MED ONE 04/26 1326 [place] Teaching ED 04/26 1327 Assessment/Plan Assessment: Ms. Crowder is a 41-year-old female a past history of multiple sclerosis who was evaluated after placement of a buttock flap for the treatment of decubitus ulcer by Dr. Strange. She is being managed on general medicine floor for finding of long-term placement. #Management of decubitus washed with hydrogen peroxide daily. Valdovinos catheter to be removed, as per Dr. Strange. Currently dressing in place. Monitor for any fever or signs of infection. Follow culture sensitivities taken from the operating room. Rule out osteomyelitis. #Multiple sclerosis Currently on baclofen. Continue to manage with tecfidera. Continue Lexapro for mental health. #Anemia Likely from iron deficiency anemia or anemia of chronic disease. HEB on 04/26/2016: 7.8. Repeat CBC to monitor H/H. MCV 77.8, RDW 18.0. #DVT prophylaxis Heparin. Problem List: 1. Multiple sclerosis 2. Multiple sclerosis Pain Ratin Pain Location: No Pain Reported Pain Goal: Remain pain free Pain Plan: Tylenol PRN Tomorrow's Labs & Rationales: CBC: Monitor WBC in the setting of infection Consulting Request: Consulting Specialty: Plastic Surgery Consulting Physician: Dr. Eliud RUBIN MD,[facility] 04/27/16 1219: Attending MD Review Statement Attending Statement Attending MD Statement: examined this patient, discuss w/resident/PA/MATHEMATICAL ENGINEER, agreed w/resident/PA/MATHEMATICAL ENGINEER, reviewed EMR data (avail), discussed with nursing, discussed with case mgmt, amended to note Attending Assessment/Plan: Patient seen and examined, she offers no complaints. She denies any current pain. She status post flap for the buttock sacral decubitus. She will be started on her Tecfidra once her family brings it. She is awaiting the decision if she can be discharged to rehabilitation.. From medical standpoint she can be discharged. She should be continued on her home medications. Wound Care per plastic surgery.
[2016-04-27 08:18] VITALS: BP 108/70
--- NOTE | 2016-04-27 10:03 | Patient Discharge Instructions ---
Discharge Instructions General Discharge Information You were seen/treated for: Placement of buttock flap for sacral decubitus ulcer Special Instructions: 1)Please make an appointment to see your PCP within one week from discharge. 2)Please make an appointment to see your neurologist within one week from discharge. 3) In three weeks, please follow up in the office of Dr Kline. You will be required to go in on a stretcher. 4) Daily wound care instructions: Xeroform + D5D to Incision QD. QD wipe H2O2 on incision plus prn with BM's. 5) Minimize blankets/sheets/chucks under the buttock (this reduces the effectiveness of the bed). Diet Recommended Diet: Regular Activity Activity Self Limited: Yes Acute Coronary Syndrome Inclusion Criteria At DC or during hospital stay patient has or had the following: ACS DIAGNOSIS No Discharge Core Measures Meds if any: Prescribed or Continued at Discharge Meds if any: NOT Prescribed or Continued at Discharge Congestive Heart Failure Inclusion Criteria At DC or during hospital stay patient has or had the following: CHF DIAGNOSIS No Discharge Core Measures Meds if any: Prescribed or Continued at Discharge Meds if any: NOT Prescribed or Continued at Discharge Cerebrovascular accident Inclusion Criteria At DC or during hospital stay patient has or had the following: CVA/TIA Diagnosis No Discharge Core Measures Meds if any: Prescribed or Continued at Discharge Meds if any: NOT Prescribed or Continued at Discharge Venous thromboembolism Inclusion Criteria VTE Diagnosis No VTE Type NONE VTE Confirmed by (Test) NONE Discharge Core Measures - Per Current guidelines, there needs to be overlap - treatment for the first 5 days of Warfarin therapy. - If discharged on Warfarin prior to 5 days of - overlap therapy, the patient will need to be - assessed for post discharge needs including - *Post discharge parental anticoagulation - *Warfarin and/or parental anticoagulation education - *Follow up date to check INR post discharge At least 5 days overlap therapy as Inpatient No Meds if any: Prescribed or Continued at Discharge Note: Overlap Therapy is Warfarin and Anticoagulant Meds if any: NOT Prescribed or Continued at Discharge
--- NOTE | 2016-04-27 12:16 | Operative Report ---
Operative/Inv Procedure Report Surgery Date: 04/23/16 Name of Procedure: Debridement sacral wound with fasciocutaneous and muscle flap individually Pre-Operative Diagnosis: Sacral decubiti chronic secondary to multiple sclerosis bedridden status Post-Operative Diagnosis: Same Estimated Blood Loss: scant (200) Surgeon/Measurement Coordinator: josephine Anesthesia: general endotracheal tube Operative/Procedure Note Note: Patient's power of admitted attorneys father was counseled in regards to the procedure the alternatives risks and expected outcomes as relates to debridement of a chronic sacral wound covered by flap closure. This dictation is being performed secondarily due to a missing one reportedly. Recollection recalls the following. The patient was brought to the operating room and intubated on the stretch. She was turned into the prone position and appropriately padded. Intravenous antibiotic given. The buttock was prepped and draped in usual sterile fashion. A semi-curved incision was placed into the upper left buttock elevating skin and fascia off of the muscle. The muscle was then divided superiorly and used to cover exposed sacral bone along its length of coverage ability. This fixed into position with observable suture. The fasciocutaneous flap was then used to cover the muscle and this was done over a drain. 3 layer closure was then carried out.
--- NOTE | 2016-04-27 16:29 | Event Note ---
Event Note Event Note: At 420 PM a rapid response was called on this patient. The nurse found that Ms Crowder was tachycardic (HR of 150) and it was also found that the patient was febrile with a 102 deg F temperature. The patient appeart alert and oriented, although appeared like she had the rigors. The patients vitals were as follows: HR: 148. BP 96/40. Temperature 102 deg F. Saturation 100% on RA. The following lab work and imaging studies were ordered Stat: Blood culture, UA, UC, CBC, EKG, C-Xray, Flu Swab The patient was also immediately started on IV Vancomycin and IV Ceftazidime. The resident was present. The attending was present. The surgical PA was also notified by the resident, they were waiting for a formal consult and follow up from Dr Lyman. Addendum: Patients father Mr. Jose Crowder is aware of the current situation and the need for the patient to get a femoral blood draw/line.
[2016-04-27 16:52] VITALS: BP 116/88
--- NOTE | 2016-04-27 17:03 | RADIOLOGY REPORT ---
EXAMINATION: XR PORTABLE CHEST CLINICAL INFORMATION: Tachycardia. Decreased mentation. Febrile. Rule out aspiration, consolidation. COMPARISON: None. TECHNIQUE: AP portable upright view of the chest. Patient is tilted to the left. FINDINGS: Lung volumes are low. No consolidation, pneumothorax, or pleural effusion. Cardiac and mediastinal contours are normal. Pulmonary vasculature is unremarkable. Trachea is midline. Gas-filled segments of small and large bowel are present in the upper abdomen, within normal limits. Osseous structures are unremarkable. IMPRESSION: No acute cardiopulmonary findings
[2016-04-27 18:00] VITALS: BP 115/55
--- NOTE | 2016-04-27 21:08 | NUR ---
PATIENT IS ALERT AND ORIENTED AT THIS TIME. DENIES CHEST PAIN. + PULSES TURNED AND REPOSITIONED Q2HRS. NO DISCOMFORT NOTED. MEDICATIONS GIVEN. WILL CONTINUE TO MONITOR
[2016-04-28 00:03] VITALS: BP 120/80
--- NOTE | 2016-04-28 05:56 | PN- Housestaff ---
BHAVANA ARTEAGA,[facility] 04/28/16 0556: Subjective Follow-up For: MS Tachycardia Subjective: Ms Crowder was seen and examined this morning. Endorses no issues overnight. Reports she was able to rest well. She appears more comfortable and oriented compared to earlier last evening when she had a rapid response called. She denies and pain. Denies and fever, chills, nausea and vomiting. Review of Systems Constitutional: Reports: see HPI. Objective Last 24 Hrs of Vital Signs/I&O Vital Signs Date Time Temp Pulse Resp B/P Pulse O2 O2 Flow FiO2 Ox Delivery Rate 04/28 0836 98.2 110 18 114/80 98 Room Air 04/28 0003 98.6 109 18 120/80 99 Room Air 04/27 1800 98.5 133 18 115/55 100 Room Air 04/27 1652 102.5 150 24 116/88 98 Room Air 04/27 1630 102.4 04/27 1505 Room Air Intake & Output 04/28 1600 04/28 0800 04/28 0000 Intake Total 1000 Output Total 25 Balance 1000 -25 Intake, IV 1000 Number 3 4 Bowel Movements Output, 25 Drainage Physical Exam General Appearance: Alert, Oriented X3, Cooperative, No Acute Distress Cardiovascular: Normal S1, Normal S2 Lungs: Increased respiratory sounds Abdomen: Normal Bowel Sounds, Soft, No Tenderness Extremities: No Edema, Surgical site, clean, dry and intact. Kai in place. Current Medications: Current Medications Sig/Tim Start time Last Medication Dose Route Stop Time Status Admin Acetaminophen 1,000 MG ONCE ONE 04/27 1630 DC 04/27 IV 04/27 1631 1630 Acetaminophen 650 MG Q6P PRN 04/23 2115 AC PO Baclofen 10 MG TID 04/23 2200 AC 04/27 PO 2224 Ceftazidime 1,000 MG ONCE ONE 04/27 1630 DC 04/27 IV 04/27 1631 2009 Escitalopram Oxalate 10 MG DAILY 04/24 1000 AC 04/27 PO 1222 Heparin Sodium 5,000 UNIT Q8 04/24 0600 AC 04/28 (Porcine) SC 0624 Sodium Chloride 1,000 ML Q8H 04/27 1945 AC 04/28 IV 0624 Sodium Chloride 1,000 ML BOLUS ONE 04/27 1630 DC 04/27 IV 04/27 1729 1630 Vancomycin HCl 1,000 MG ONCE ONE 04/27 1630 DC 04/27 Dextrose/Water 250 ML IV 04/27 Last 24 Hrs of Lab/Julien Results Last 24 Hrs of Labs/Mics: Laboratory Tests 04/28/16 0710: Anion Gap 10, Estimated GFR > 60, BUN/Creatinine Ratio 30.0 H, CBC w Diff Pending, WBC Pending, RBC Pending, Hgb Pending, Hct Pending, MCV Pending, MCH Pending, RDW Pending, Plt Count Pending, MPV Pending, Gran % Pending, Lymphocytes % Pending, Monocytes % Pending, Eosinophils % Pending, Basophils % Pending, Absolute Granulocytes Pending, Absolute Lymphocytes Pending, Absolute Monocytes Pending, Absolute Eosinophils Pending, Absolute Basophils Pending, PUBS MCHC Pending 04/27/161925: Lactic Acid Cancelled 04/27/161816: Urinalysis LIGHT H, Urine Color YEL, Urine Clarity HAZY H, Urine pH 6.5, Ur Specific [place] 1.010, Urine Protein NEG, Urine Ketones NEG, Urine Nitrite POS H, Urine Bilirubin NEG, Urine Urobilinogen 0.2, Ur Leukocyte Esterase MOD H, Ur Microscopic SEDIMENT EXAMINED, Urine RBC 3-5, Urine WBC 15-25 H, Ur Epithelial Cells MOD H, Urine Bacteria MANY H, Urine Hemoglobin MOD H, Urine Glucose NEG 04/27/16 1621: CBC w Diff Cancelled, WBC Cancelled, RBC Cancelled, Hgb Cancelled, Hct Cancelled , MCV Cancelled, MCH Cancelled, RDW Cancelled, Plt Count Cancelled, MPV Cancelled, PUBS MCHC Cancelled Microbiology 04/27 1817 URINE ROUT: Urine Culture - RECD 04/27 1624 NASOPHARYN: Influenza Virus A & B Rapid Smear - COLB 04/27 1621 BLOOD: Blood Culture - CAN Cancelled: SPECIMEN NOT RECEIVED IN LABORATORY 04/27 162 BLOOD: Blood Culture - CAN Cancelled: SPECIMEN NOT RECEIVED IN LABORATORY Assessment/Plan Assessment: Ms. Crowder is a 41-year-old female a past history of multiple sclerosis who was evaluated after placement of a buttock flap for the treatment of decubitus ulcer by Dr. Strange. She is being managed on general medicine floor for finding of long-term placement. #UTI Patient was febrile last evening and tachycardic. Urine analysis from 04/27 showed positivity for urine nitrite as well as moderate leukocyte esterase. Urine culture positive for gram-negative rods susceptibilities and identification to follow and will tailor antibiotics appropriate. Given a one-time dose of vancomycin and ceftazidime. We'll also begin the patient on ceftriaxone. 1000 g daily IV. This morning her white count was elevated at 16.1. Repeat CBC name. #Hypokalemia Patient had a potassium level of 3.2. She was given a one-time dose of IV potassium 40MEQ. Will repeat BMP in the a.m. #Management of decubitus washed with hydrogen peroxide daily. Valdovinos catheter to be removed, as per Dr. Strange. Currently dressing in place. Monitor for any fever or signs of infection. Follow culture sensitivities taken from the operating room. Rule out osteomyelitis. #Multiple sclerosis Currently on baclofen. Continue to manage with tecfidera. Continue Lexapro for mental health. #Anemia Likely from iron deficiency anemia or anemia of chronic disease. HEB on 04/26/2016: 7.8. Repeat CBC to monitor H/H.8./25.0 MCV 77.8, RDW 18.0. #DVT prophylaxis Heparin. Problem List: 1. Multiple sclerosis 2. Multiple sclerosis Pain Ratin Pain Location: No Pain Reported Pain Goal: Remain pain free Pain Plan: Tyelonl PRN Tomorrow's Labs & Rationales: CBC patient had an elevated white count and is currently on antibiotic. BEP: Patient was hypokalemic this a.m. and needed supplemental potassium. Consulting Request: Consulting Specialty: Plastic Surgery Consulting Physician: Dr. Eliud RUBIN MD,[facility] 04/28/16 1349: Attending MD Review Statement Attending Statement Attending MD Statement: examined this patient, discuss w/resident/PA/POLITICAL ORGANIZER, agreed w/resident/PA/POLITICAL ORGANIZER, reviewed EMR data (avail), discussed with nursing, discussed with case mgmt, reviewed images, amended to note Attending Assessment/Plan: Patient seen and examined, feeling overall better today. Had a rapid response yesterday then she was tachycardic to 150s, spiked fever off 102F. She was also slightly hypotensive. Vital Signs Date Time Temp Pulse Resp B/P Pulse O2 O2 Flow FiO2 Ox Delivery Rate 04/28 1333 Room Air 04/28 0846 Room Air 04/28 0836 98.2 110 18 114/80 98 Room Air 04/28 0003 98.6 109 18 120/80 99 Room Air 04/27 1800 98.5 133 18 115/55 100 Room Air 04/27 1652 102.5 150 24 116/88 98 Room Air 04/27 1630 102.4 04/27 1505 Room Air on exam; aox3, nad. cv; s1,s2, rrr. resp; clear. abd; soft, nt, bs+ ext; no edema. Laboratory Tests 04/28 04/27 0710 1926 Chemistry Sodium (137 - 145 mmol/L) 138 Potassium (3.5 - 5.1 mmol/L) 3.2 L Chloride (98 - 107 mmol/L) 107 Carbon Dioxide (22 - 30 mmol/L) 21 L Anion Gap (5 - 16) 10 BUN (7 - 17 mg/dL) 9 Creatinine (0.5 - 1.0 mg/dL) 0.3 L Estimated GFR (>60 ml/min) > 60 BUN/Creatinine Ratio (7 - 25 %) 30.0 H Lactic Acid Cancelled Hematology CBC w Diff NO MAN DIFF REQ WBC (4.8 - 10.8 /CUMM) 16.1 H RBC (4.20 - 5.40 /CUMM) 3.17 L Hgb (12.0 - 16.0 G/DL) 8.1 L Hct (37 - 47 %) 25.0 L MCV (81.0 - 99.0 FL) 78.7 L MCH (27.0 - 31.0 PG) 25.5 L RDW (11.5 - 14.5 %) 18.8 H Plt Count (130 - 400 /CUMM) 260 MPV (7.4 - 10.4 FL) 8.6 Gran % (42.2 - 75.2 %) 89.6 H Lymphocytes % (20.5 - 51.1 %) 5.9 L Monocytes % (1.7 - 9.3 %) 4.0 Eosinophils % (0 - 5 %) 0.5 Basophils % (0.0 - 2.0 %) 0 L Absolute Granulocytes (1.4 - 6.5 /CUMM) 14.5 H Absolute Lymphocytes (1.2 - 3.4 /CUMM) 0.9 L Absolute Monocytes (0.10 - 0.60 /CUMM) 0.6 Absolute Eosinophils (0.0 - 0.7 /CUMM) 0.1 Absolute Basophils (0.0 - 0.2 /CUMM) 0 PUBS MCHC (33.0 - 37.0 G/DL) 32.4 L 04/27 04/27 1817 1621 Hematology CBC w Diff Cancelled WBC Cancelled RBC Cancelled Hgb Cancelled Hct Cancelled MCV Cancelled MCH Cancelled RDW Cancelled Plt Count Cancelled MPV Cancelled PUBS MCHC Cancelled Urines Urinalysis LIGHT H Urine Color (YEL,AMB,STR) YEL Urine Clarity (CLEAR) HAZY H Urine pH (5.0 - 8.0) 6.5 Ur Specific [place] (1.001 - 1.035) 1.010 Urine Protein (NEG,<30 MG/DL) NEG Urine Ketones (NEG) NEG Urine Nitrite (NEG) POS H Urine Bilirubin (NEG) NEG Urine Urobilinogen (0.1 - 1.0 EU/dl) 0.2 Ur Leukocyte Esterase (NEG) MOD H Ur Microscopic SEDIMENT EXAMINED Urine RBC (0 - 5 /HPF) 3-5 Urine WBC (0 - 2 /HPF) 15-25 H Ur Epithelial Cells (NONE,FEW) MOD H Urine Bacteria (NEG/NONE) MANY H Urine Hemoglobin (NEG) MOD H Urine Glucose (N MG/DL) NEG A/P; 41-year-old female with history of multiple sclerosis who is wheelchair- bound, she status post right buttock flap for the decubitus ulcer. Pt had a rapid response yesterday when she became tachycardic, spiked fever of 102 and also was slightly hypotensive. Looks like that she is developing a urinary tract infection. He received a dose of Vanco and ceftaz yesterday. Will start her on ceftriaxone and follow-up on the urine cultures. Her chest x-ray was negative. Flu swab was ordered but never done but now that she is afebrile, she also has a leukocytosis and a dirty looking urine likely we can attribute this episode off tachycardia and fever to a urinary tract infection. With that please episode patient did meet sepsis criteria. Lactate was ordered but was never received yesterday. Wound care per plastic surgery. Patient is awaiting a bed availability at a rehabilitation. I stopped her IV fluids now that her blood pressure has improved. DVT prophylaxis: Hep sq.
[2016-04-28 08:18] LABS: ABSOLUTE BASOPHIL COUNT 0 /CUMM (0.0-0.2); ABSOLUTE EOSINOPHIL COUNT 0.1 /CUMM (0.0-0.7); ABSOLUTE GRANULOCYTE CT 14.5 /CUMM (1.4-6.5); ABSOLUTE LYMPH COUNT 0.9 /CUMM (1.2-3.4); ABSOLUTE MONOCYTE COUNT 0.6 /CUMM (0.10-0.60); BASOPHIL % 0 % (0.0-2.0); EOSINOPHIL % 0.5 % (0-5); GRANULOCYTE % 89.6 % (42.2-75.2); MEAN CORPUSCULAR HGB 25.5 PG (27.0-31.0); MEAN CORPUSCULAR HGB CONC 32.4 G/DL (33.0-37.0); MEAN CORPUSCULAR VOLUME 78.7 FL (81.0-99.0); MEAN PLATELET VOLUME 8.6 FL (7.4-10.4); PLATELET COUNT 260 /CUMM (130-400); RBC DISTRIBUTION WIDTH 18.8 % (11.5-14.5); RED BLOOD CELL CT 3.17 /CUMM (4.20-5.40)
[2016-04-28 08:36] VITALS: BP 114/80
[2016-04-28 10:15] LABS: WHITE BLOOD CELL COUNT 16.1 /CUMM (4.8-10.8)
[2016-04-28 15:20] VITALS: BP 110/60
--- NOTE | 2016-04-28 20:07 | NUR ---
MULTIPLE SEMI SOLID STOOLS THIS SHIFT, DARK COLORED HEMOCCULT NEGATIVE, SENT C DIFF SAMPLE.
[2016-04-28 23:06] VITALS: BP 118/72
--- NOTE | 2016-04-29 06:02 | PN- Housestaff ---
See Addendum Subjective Follow-up For: MS UTI Subjective: Ms Crowder was seen and examined this morning. Resting comfortably in bed. Denies no issues overnight. Was able to get adequate rest. Patient states that she continues to feel tired and would like to sleep. Nursing reports that there was some discharge (described as serosanguinous) from chanelle status post decubitus ulcer flap. She denies any pain. Patient denies any fever, chills, nausea, vomiting. Review of Systems Constitutional: Reports: see HPI. Denies: chills, diaphoresis, fever, malaise. Objective Last 24 Hrs of Vital Signs/I&O Vital Signs Date Time Temp Pulse Resp B/P Pulse O2 O2 Flow FiO2 Ox Delivery Rate 04/28 2306 99.4 125 20 118/72 99 Room Air 04/28 1520 97.8 110 18 110/60 98 Room Air 04/28 1333 Room Air 04/28 0846 Room Air 04/28 0836 98.2 110 18 114/80 98 Room Air Intake & Output 04/29 0800 04/29 0000 04/28 1600 Intake Total 480 200 Output Total 10 30 Balance 470 170 Intake, Oral 480 200 Number 1 4 3 Bowel Movements Output, 10 30 Drainage Physical Exam General Appearance: Alert, Oriented X3 Cardiovascular: Normal S1, Normal S2, No Murmurs Lungs: Clear to Auscultation Abdomen: Normal Bowel Sounds, Soft, No Tenderness Neurological: Decreased Sensation in Bilateral Extremities. Current Medications: Current Medications Sig/Tim Start time Last Medication Dose Route Stop Time Status Admin Acetaminophen 650 MG Q6P PRN 04/23 2115 AC PO Baclofen 10 MG TID 04/23 2200 AC 04/28 PO 2130 Ceftriaxone Sodium 1,000 MG DAILY 04/28 0930 AC 04/28 IV 1114 Escitalopram Oxalate 10 MG DAILY 04/24 1000 AC 04/28 PO 1108 Heparin Sodium 5,000 UNIT Q8 04/24 0600 AC 04/28 (Porcine) SC 2130 Patient Medication 1 ED .STK-MED ONE 04/28 1321 DC Teaching ED 04/28 1322 Potassium Chloride 40 MEQ .STK-MED ONE 04/28 1052 DC PO 04/28 1053 Potassium Chloride 40 MEQ ONCE ONE 04/28 0930 DC 04/28 PO 04/28 0931 1108 Sodium Chloride 1,000 ML Q8H 04/27 1945 DC 04/28 IV 1110 Last 24 Hrs of Lab/Julien Results Last 24 Hrs of Labs/Mics: Laboratory Tests 04/29/16 0610: Sodium Pending, Potassium Pending, Chloride Pending, Carbon Dioxide Pending, Anion Gap Pending, BUN Pending, Creatinine Pending, BUN/Creatinine Ratio Pending , Magnesium Pending, CBC w Diff Pending, WBC Pending, RBC Pending, Hgb Pending, Hct Pending, MCV Pending, MCH Pending, RDW Pending, Plt Count Pending, MPV Pending, PUBS MCHC Pending 04/28/16 0710: Anion Gap 10, Estimated GFR > 60, BUN/Creatinine Ratio 30.0 H, CBC w Diff NO MAN DIFF REQ, RBC 3.17 L, MCV 78.7 L, MCH 25.5 L, RDW 18.8 H, MPV 8.6, Gran % 89.6 H, Lymphocytes % 5.9 L, Monocytes % 4.0, Eosinophils % 0.5, Basophils % 0 L, Absolute Granulocytes 14.5 H, Absolute Lymphocytes 0.9 L, Absolute Monocytes 0.6, Absolute Eosinophils 0.1, Absolute Basophils 0, PUBS MCHC 32.4 L Microbiology 04/28 1900 STOOL: Clostridium difficile Toxin A & B - RECD Assessment/Plan Assessment: Ms. rCowder is a 41-year-old female a past history of multiple sclerosis who was evaluated after placement of a buttock flap for the treatment of decubitus ulcer by Dr. Strange. She is being managed on general medicine floor for finding of long-term placement. #UTI Patient was febrile last evening and tachycardic. Urine analysis from 04/27 showed positivity for urine nitrite as well as moderate leukocyte esterase. Urine culture positive for gram-negative rods susceptibilities and identification to follow and will tailor antibiotics appropriate. Given a one-time dose of vancomycin and ceftazidime. We'll also begin the patient on ceftriaxone. 1000 g daily IV. UC + for razo sensitive E Coli. We naty. change the antibiotics to Cephalexin 500 mg PO Q6. White count was elevated at 16.1 (04/29/2016). Repeat CBC:12.0 Repeat CBC name. in AM #Hypokalemia Patient had a potassium level of 3.5 She was given a one-time dose of PO Potassium 40MEQ. Will repeat BMP in the a.m. #Management of decubitus washed with hydrogen peroxide daily. Valdovinos catheter to be removed, as per Dr. Strange. Currently dressing in place. Monitor for any fever or signs of infection. Daily wound care instructions: : Xeroform + D5D to Incision QD. QD wipe H2O2 on incision plus prn with BM's. Keep drain in place till patient sees Dr Kline in three weeks. Follow culture sensitivities taken from the operating room. Rule out osteomyelitis. #Multiple sclerosis Currently on baclofen. Continue to manage with tecfidera. Continue Lexapro for mental health. #Anemia Likely from iron deficiency anemia or anemia of chronic disease. HEB on 04/26/2016: 7.8. Repeat CBC to monitor H/H.... MCV 77.8, RDW 18.0. #DVT prophylaxis Heparin. Problem List: 1. Multiple sclerosis 2. Multiple sclerosis 3. UTI (urinary tract infection) Pain Ratin Pain Location: No Pain Pain Goal: Remain pain free Pain Plan: Tylenol PRN Tomorrow's Labs & Rationales: CBC, Monitor WBC Consulting Request: Consulting Specialty: Plastic Surgery Consulting Physician: Dr. Kline
[2016-04-29 07:48] VITALS: BP 112/62
[2016-04-29 07:56] LABS: ABSOLUTE BASOPHIL COUNT 0 /CUMM (0.0-0.2); ABSOLUTE EOSINOPHIL COUNT 0.1 /CUMM (0.0-0.7); ABSOLUTE GRANULOCYTE CT 10.4 /CUMM (1.4-6.5); ABSOLUTE MONOCYTE COUNT 0.5 /CUMM (0.10-0.60); BASOPHIL % 0.1 % (0.0-2.0); EOSINOPHIL % 0.9 % (0-5); GRANULOCYTE % 86.4 % (42.2-75.2); HEMATOCRIT 23.2 % (37-47); MEAN CORPUSCULAR HGB 25.4 PG (27.0-31.0); MEAN CORPUSCULAR HGB CONC 32.5 G/DL (33.0-37.0); MEAN CORPUSCULAR VOLUME 78.2 FL (81.0-99.0); MEAN PLATELET VOLUME 8.3 FL (7.4-10.4); PLATELET COUNT 265 /CUMM (130-400); RBC DISTRIBUTION WIDTH 18.7 % (11.5-14.5); RED BLOOD CELL CT 2.97 /CUMM (4.20-5.40)
[2016-04-29] MEDS ORDERED: CEPHALEXIN500 M3 PO (11:15)
[2016-04-29 14:32] VITALS: BP 112/60
--- NOTE | 2016-04-29 21:11 | NUR ---
WHILE CLEANING PT DUE TO A BM, STAPLED WOUND NEAR COCCYX BEGAN TO BLEED PUTTING OUT A MODERATE AMOUNT OF BLOOD. APPLIED FIRM PRESSURE FOR SEVERAL MINUTES TO ATTEMPT TO STOP BLEEDING. CALLED AND SPOKE WITH GPS FIELD DATA COLLECTOR ON #420 ADVISING OF SITUATION. GPS FIELD DATA COLLECTOR ON HIS WAY TO ASSESS THE PT.
--- NOTE | 2016-04-29 21:38 | Event Note ---
Event Note Event Note: Situation: Active bleeding at s/p sacral debrided area. Brief Assesment: * Other than Tachycardia (HR 120), pt VS stable. * Surgical PA had examined the wound area prior in the morning and noted that it was stable with no acute complications. * The s/p debrided sacral area was examined, after atleast 10 minutes of pressure, active bleeding was noted to have stopped. MORGAN was noted to have about 60 mls of bleed with some clots. However, nursing staff unsure wether it was drained during previous shift. * Stat CBC and cross match was obtained. * Pt's father (POA) was notified, and gave consent for blood transfusion if needed. Assesmen and Plan * H&H stable (8.1/24.5), Acute bleeding stopped. Will notify Dr Strange office tomorrow, for reassesement of the sacral wound area.
[2016-04-29 22:23] LABS: ABSOLUTE BASOPHIL COUNT 0 /CUMM (0.0-0.2); ABSOLUTE EOSINOPHIL COUNT 0.2 /CUMM (0.0-0.7); ABSOLUTE GRANULOCYTE CT 12.3 /CUMM (1.4-6.5); ABSOLUTE LYMPH COUNT 0.9 /CUMM (1.2-3.4); ABSOLUTE MONOCYTE COUNT 0.5 /CUMM (0.10-0.60); BASOPHIL % 0.2 % (0.0-2.0); EOSINOPHIL % 1.1 % (0-5); HEMATOCRIT 24.5 % (37-47); MEAN CORPUSCULAR HGB 25.4 PG (27.0-31.0); MEAN CORPUSCULAR HGB CONC 32.9 G/DL (33.0-37.0); MEAN CORPUSCULAR VOLUME 77.1 FL (81.0-99.0); MEAN PLATELET VOLUME 8.5 FL (7.4-10.4); PLATELET COUNT 353 /CUMM (130-400); RBC DISTRIBUTION WIDTH 18.8 % (11.5-14.5); RED BLOOD CELL CT 3.18 /CUMM (4.20-5.40)
[2016-04-29 22:25] LABS: GRANULOCYTE % 88.2 % (42.2-75.2)
[2016-04-29 22:41] VITALS: BP 118/7
--- NOTE | 2016-04-30 00:27 | NUR ---
LATE ENTRY NURSING NOTE: CLOTH MEASURER SLEEVE MACHINE TENDER ASSESSED PT. BLEEDING STOPPED AFTER PRESSURE WAS APPLIED FOR SEVERAL MINUTES. CLOTH MEASURER ASSESSED THE WOUND AND ADVISED THIS RN THAT DR. SILVERIO WILL BE NOTIFIED BY THE AM TEAM ABOUT WHAT HAPPENED. PT HR WAS ELEVATED AT 128, CLOTH MEASURER WAS MADE AWARE OF THIS WELL. ALL OTHER VS WERE WNL. A CBC/TYPE & CROSS/ABOH CONF WAS DRAWN ORDERED. PT RESTING COMFORTABLY AT THIS TIME. WILL CONTINUE TO MONITOR.
--- NOTE | 2016-04-30 05:59 | PN- Housestaff ---
BHAVANA ARTEAGA,[facility] 04/30/16 0559: Subjective Follow-up For: MS UTI Subjective: Ms. Crowder was seen and examined this morning. She reports no issues overnight. She currently states that she is comfortable and denies any pain. The patient is alert and oriented and states that she feels well. Overnight it was reported that the patient had an increase of eric blood from the wound after one of the chanelle had accidentally come out. Patient reports good appetite. Patient denies any fever, chills, nausea, vomiting. Review of Systems Constitutional: Reports: see HPI. Denies: chills. Objective Last 24 Hrs of Vital Signs/I&O Vital Signs Date Time Temp Pulse Resp B/P Pulse O2 O2 Flow FiO2 Ox Delivery Rate 04/30 0733 97.8 122 20 102/62 100 Room Air 04/29 2241 98.6 128 20 118/7 100 04/29 1600 Room Air 04/29 1432 97.6 110 18 112/60 98 Room Air Intake & Output 04/30 1600 04/30 0800 04/30 0000 Intake Total 50 Output Total 90 100 Balance -40 -100 Intake, Oral 50 Number 1 1 Bowel Movements Output, 90 100 Drainage Physical Exam General Appearance: Alert, Oriented X3, Cooperative Cardiovascular: Normal S1, Normal S2, No Murmurs Lungs: Clear to Auscultation Abdomen: Normal Bowel Sounds, Soft, No Tenderness Extremities: No Edema, Surgical Wound, clean, dry and intact. MORGAN drain contained sanguinous drainage. Base of coccyx contanied some excoriation. Current Medications: Current Medications Sig/Tim Start time Last Medication Dose Route Stop Time Status Admin Acetaminophen 650 MG Q6P PRN 04/23 2114 AC PO Baclofen 10 MG TID 04/23 2199 AC 04/29 PO 205 Cephalexin 500 MG Q6 04/30 0600 AC 04/30 PO 0608 Escitalopram Oxalate 10 MG DAILY 04/24 1000 AC 04/29 PO 1020 Ferrous Sulfate 325 MG DAILY 04/29 1325 AC 04/29 PO 1645 Heparin Sodium 5,000 UNIT Q8 04/24 0600 AC 04/30 (Porcine) SC 0608 Last 24 Hrs of Lab/Julien Results Last 24 Hrs of Labs/Mics: Laboratory Tests 04/29/162142: CBC w Diff NO MAN DIFF REQ, RBC 3.18 L, MCV 77.1 L, MCH 25.4 L, RDW 18.8 H, MPV 8.5, Gran % 88.2 H, Lymphocytes % 6.6 L, Monocytes % 3.9, Eosinophils % 1.1, Basophils % 0.2, Absolute Granulocytes 12.3 H, Absolute Lymphocytes 0.9 L , Absolute Monocytes 0.5, Absolute Eosinophils 0.2, Absolute Basophils 0, PUBS MCHC 32.9 L Assessment/Plan Assessment: Ms. Crowder is a 41-year-old female a past history of multiple sclerosis who was evaluated after placement of a buttock flap for the treatment of decubitus ulcer by Dr. Strange. She is being managed on general medicine floor for finding of long-term placement. #UTI Patient was febrile last evening and tachycardic. Urine analysis from 04/27 showed positivity for urine nitrite as well as moderate leukocyte esterase. Urine culture positive for gram-negative rods susceptibilities and identification to follow and will tailor antibiotics appropriate. Given a one-time dose of vancomycin and ceftazidime. We'll also begin the patient on ceftriaxone. 1000 g daily IV. UC + for razo sensitive E Coli. We naty. change the antibiotics to Cephalexin 500 mg PO Q6. Continue cephalexin 500 mg by mouth every 6. White count was elevated at 16.1 (04/29/2016). Repeat CBC:12.0-->14. Repeat in AM Repeat CBC name. in AM #Hypokalemia Patient is currently symptomatic. Will repeat BP on 05/01/2016. Patient had a potassium level of 3.5 She was given a one-time dose of PO Potassium 40MEQ. Will repeat BMP in the a.m. #Management of decubitus washed with hydrogen peroxide daily. Currently dressing in place. Monitor for any fever or signs of infection. Daily wound care instructions: : Xeroform + D5D to Incision QD. QD wipe H2O2 on incision plus prn with BM's. Keep drain in place till patient sees Dr Kline in three weeks. Follow culture sensitivities taken from the operating room. Rule out osteomyelitis. #Multiple sclerosis Currently on baclofen. Continue to manage with tecfidera. Continue Lexapro for mental health. #Anemia Likely from iron deficiency anemia or anemia of chronic disease. HEB on 04/26/2016: 7.8. Repeat CBC to monitor H/H: 8.1/24.5 #DVT prophylaxis Heparin. Problem List: 1. Multiple sclerosis 2. Multiple sclerosis 3. UTI (urinary tract infection) Pain Ratin Pain Location: No Pain Pain Goal: Remain pain free Pain Plan: Tylenol PRN Tomorrow's Labs & Rationales: CBC: monitor white count in the setting of an acute infection. BEP: monitor electrolyte levels more specifically potassium in the setting of hypokalemia. Consulting Request: Consulting Specialty: Plastic Surgery Consulting Physician: Dr. Eliud RUBIN MD,[facility] 04/30/16 1314: Attending MD Review Statement Attending Statement Attending MD Statement: examined this patient, discuss w/resident/PA/THOROUGH[employer] HORSE FARM MANAGER, agreed w/resident/PA/[employer]OR[employer] H[employer]SE FARM MANAGER, reviewed EMR data (avail), discussed with nursing, discussed with case mgmt, amended to note Attending Assessment/Plan: Patient seen and examined, offers no complaints. Last night her buttock for had some bleeding. She has been seen by surgical PA today and they have cleared her to be discharged. She does have mild leukocytosis but she is on antibiotics for UTI. She has no fever. She has a bed available at one of the rehabilitation places today and will be discharged today.
[2016-04-30 07:33] VITALS: BP 102/62
--- NOTE | 2016-04-30 09:42 | Event Note ---
Event Note Event Note: Received report that nita had increased bleeding from staple line of wound overnight after having been moved. I evaluated wound this am with Luis Angel Godfrey PA-c. At this time, skin edges were well approximated along the staple line and there was no evidence of active bleeding externally. MORGAN drain contained sanguinous drainage. There was some excoriation noted at the base of the coccyx. I discussed this with Dr. Charles Kline who feels that the patient may be transferred to her assigned care facility today and he will see her in his office via stretcher in one week.
[2016-04-30 14:57] VITALS: BP 96/58
--- NOTE | 2016-04-30 20:10 | NUR ---
LATE ENTRY: AT 1440, BP 98/58, PULSE 150, TEMP 99.1, RESIDENT LALI AWARE, NORMAL SALINE AT 100MLS/HR ORDERED. DISCHARGE ORDER WAS CANCELLED. IV ACCESS WAS LOST. PT IS A HARD STICK. KENNA WAS PAGED, BUT WAS IN THE MIDDLE OF A DIFFICULT PICC LINE. NURSE ECOLOGY TEACHER TRIED TO GET LINE BUT WAS UNSUCCESSFUL. PO FLUIDS WERE ENCOURAGED. PT DRANK 500 MLS WITH DINNER. VITALS AT 1999 WERE BP 98/62, PULSE 130, TEMP 98.8. NIGHT DUMP GROUNDS CHECKER LAWANDA AWARE. ORDER TO ATTEMPT AGAIN AT IV ACCESS AND INFORM HIM IF VITALS CHANGE AGAIN. NIGHT NURSE AWARE.
[2016-04-30 23:01] VITALS: BP 90/60
--- NOTE | 2016-04-30 23:21 | NUR ---
NOTIFIED #269 OF PT'S BP 90/60 P 145.
[2016-05-01 07:51] VITALS: BP 100/70
--- NOTE | 2016-05-01 08:04 | PN- Housestaff ---
MAK ARTEAGA,ASHLYN 05/01/16 0804: Subjective Follow-up For: MS UTI Subjective: I saw and examined the patient today morning She is lying in the bed in no distress, offers no complaints. Denies any pain. Review of Systems Constitutional: Reports: see HPI. Comments: ROS negative except the above. Objective Last 24 Hrs of Vital Signs/I&O Vital Signs Date Time Temp Pulse Resp B/P Pulse O2 O2 Flow FiO2 Ox Delivery Rate 05/01 0751 97.9 112 20 100/70 100 Room Air 04/30 2346 116 04/30 2301 98.4 145 20 90/60 100 Room Air 04/30 1457 99.1 150 20 96/58 100 Room Air Intake & Output 05/01 1600 05/01 0800 05/01 0000 Intake Total 920 340 Output Total 15 10 Balance 905 330 Intake, IV 800 Intake, Oral 120 340 Number 1 Bowel Movements Output, 15 10 Drainage Physical Exam General Appearance: Alert, Cooperative Skin: No Rashes, No Breakdown HEENT: Atraumatic, PERRLA Neck: Supple Cardiovascular: Normal S1, Normal S2, tachycardic Lungs: Clear to Auscultation, Normal Air Movement Abdomen: Normal Bowel Sounds, Soft, No Tenderness Extremities: No Clubbing, No Cyanosis, surgical wound is dry and intact. Current Medications: Current Medications Sig/Tim Start time Last Medication Dose Route Stop Time Status Admin Acetaminophen 650 MG Q6P PRN 04/23 2115 AC PO Baclofen 10 MG TID 04/23 2200 AC 04/30 PO 2112 Cephalexin 500 MG Q6 04/30 0600 AC 05/01 PO 0525 Escitalopram Oxalate 10 MG DAILY 04/24 1000 AC 04/30 PO 1202 Ferrous Sulfate 325 MG DAILY 04/29 1325 AC 04/30 PO 1203 Heparin Sodium 5,000 UNIT Q8 04/24 0600 AC 05/01 (Porcine) SC 0525 Lidocaine 20 ML .STK-MED ONE 04/30 1059 DC IA 04/30 1100 Patient Medication 1 ED .STK-MED ONE 04/30 1338 DC Teaching ED 04/30 1339 Sodium Chloride 1,000 ML Q10H 04/30 1445 AC 05/01 IV 05/01 1043 0031 Last 24 Hrs of Lab/Julien Results Last 24 Hrs of Labs/Mics: Laboratory Tests 03/04/17 1240: Anion Gap 7, Estimated GFR > 60, BUN/Creatinine Ratio 14.0, CBC w Diff NO MAN DIFF REQ, RBC 2.73 L, MCV 78.6 L, MCH 24.9 L, RDW 18.5 H, MPV 8.1, Gran % 83.3 H, Lymphocytes % 9.6 L, Monocytes % 5.6, Eosinophils % 1.1, Basophils % 0.4, Absolute Granulocytes 6.3, Absolute Lymphocytes 0.7 L, Absolute Monocytes 0.4, Absolute Eosinophils 0.1, Absolute Basophils 0, PUBS MCHC 31.7 L Assessment/Plan Assessment: Ms. Crowder is a 41-year-old female a past history of multiple sclerosis who was evaluated after placement of a buttock flap for the treatment of decubitus ulcer by Dr. Strange. She is being managed on general medicine floor for finding of long-term placement. #UTI Patient was febrile last evening and tachycardic. Urine analysis from 04/27 showed positivity for urine nitrite as well as moderate leukocyte esterase. Urine culture positive for gram-negative rods susceptibilities and identification to follow and will tailor antibiotics appropriate. Given a one-time dose of vancomycin and ceftazidime. We'll also begin the patient on ceftriaxone. 1000 g daily IV. UC + for razo sensitive E Coli. We naty. change the antibiotics to Cephalexin 500 mg PO Q6. Continue cephalexin 500 mg by mouth every 6. White count was elevated at 16.1 (04/29/2016). white count today is normal. Repeat in AM Repeat CBC name. in AM acute drop in H&H * Today her Hb dropped to 6.8/21.5 - received one unit of transfusion * Stool Guiac is requested * If keeps dropping further considering CT abdomen in view of retroperitoneal bleed. * will repeat her CBC tomorrow #Hypokalemia Patient is currently symptomatic. Will repeat BP on 05/01/2016. Patient had a potassium level of 3.5 She was given a one-time dose of PO Potassium 40MEQ. Will repeat BMP in the a.m. #Management of decubitus washed with hydrogen peroxide daily. Currently dressing in place. Monitor for any fever or signs of infection. Daily wound care instructions: : Xeroform + D5D to Incision QD. QD wipe H2O2 on incision plus prn with BM's. Keep drain in place till patient sees Dr Kline in three weeks. Follow culture sensitivities taken from the operating room. Rule out osteomyelitis. #Multiple sclerosis Currently on baclofen. Continue to manage with tecfidera. Continue Lexapro for mental health. #Anemia Likely from iron deficiency anemia or anemia of chronic disease. HEB on 04/26/2016: 7.8. Repeat CBC to monitor H/H: 6.8/21.5 #DVT prophylaxis Heparin. Problem List: 1. Multiple sclerosis 2. UTI (urinary tract infection) 3. Sacral decubitus ulcer Pain Ratin Pain Location: sacral ulcer Pain Goal: Pain 4 or less Pain Plan: tylenol PRN Tomorrow's Labs & Rationales: cbc to monitor her H&H in the setting of acute drop BEP to monitor any cocurrent electrolyte abnormalitis Consulting Request: Consulting Specialty: Plastic Surgery Consulting Physician: Dr. Eliud RUBIN MD,[facility] 05/01/16 1323: Attending MD Review Statement Attending Statement Attending MD Statement: examined this patient, discuss w/resident/PA/WELDING PANTOGRAPH MACHINE OPERATOR, agreed w/resident/PA/WELDING PANTOGRAPH MACHINE OPERATOR, reviewed EMR data (avail), discussed with nursing, discussed with case mgmt, reviewed images, amended to note Attending Assessment/Plan: Patient seen and examined, denies any complaints. Remains afebrile and blood pressure has improved. Will check her CBC. She had a slight worsening of leukocytosis yesterday. No further bleeding from the wound. If white blood cell count stable then she can be discharged to rehabilitation today. Addendum: CBC shows significant drop in H&H. Patient will be getting 1 unit of transfusion of RBCs. We'll check her stool for guaiac. Will hold heparin subcutaneous for now. Will repeat her CBC in the morning. If H&H continues to drop then will consider doing a CT scan to rule out retroperitoneal bleed or bleed into her surgical wound. Her discharge will be canceled. I have notified patient's father.
[2016-05-01 13:27] LABS: ABSOLUTE BASOPHIL COUNT 0 /CUMM (0.0-0.2); ABSOLUTE EOSINOPHIL COUNT 0.1 /CUMM (0.0-0.7); ABSOLUTE GRANULOCYTE CT 6.3 /CUMM (1.4-6.5); ABSOLUTE LYMPH COUNT 0.7 /CUMM (1.2-3.4); ABSOLUTE MONOCYTE COUNT 0.4 /CUMM (0.10-0.60); BASOPHIL % 0.4 % (0.0-2.0); EOSINOPHIL % 1.1 % (0-5); GRANULOCYTE % 83.3 % (42.2-75.2); HEMATOCRIT 21.5 % (37-47); MEAN CORPUSCULAR HGB 24.9 PG (27.0-31.0); MEAN CORPUSCULAR HGB CONC 31.7 G/DL (33.0-37.0); MEAN CORPUSCULAR VOLUME 78.6 FL (81.0-99.0); MEAN PLATELET VOLUME 8.1 FL (7.4-10.4); PLATELET COUNT 344 /CUMM (130-400); RBC DISTRIBUTION WIDTH 18.5 % (11.5-14.5); RED BLOOD CELL CT 2.73 /CUMM (4.20-5.40); WHITE BLOOD CELL COUNT 7.6 /CUMM (4.8-10.8)
[2016-05-01 14:49] VITALS: BP 104/62
--- NOTE | 2016-05-01 20:14 | NUR ---
1500 PATIENTS HR 130, OTHER VSS, AWARE. PT TO RECIEVE BLOOD PRODUCT 1535 BLOOD PRODUCT STARTED 1550 PT HR 124 AT 15 MINUTE TRANSFUSION CHECK 1650 HR 120 MAT MAKING MACHINE TENDER MAIA NOTIFIED. 1925 TRANSFUSION COMPLETE. HR 124 AWARE. MAT MAKING MACHINE TENDER HARIS NOTIFIED OF HEART RATE.
[2016-05-01 22:19] VITALS: BP 100/68
[2016-05-02 06:38] VITALS: BP 108/72
--- NOTE | 2016-05-02 07:58 | History & Physical ---
General Information and HPI Source of Information: patient, old records Exam Limitations: clinical condition Allergies/Medications Allergies: Coded Allergies: No Known Allergies (04/07/16) PER PRE-OP ORDER SHEET. -CG 04/07/16 1510 Home Med list Baclofen 10 MG TABLET 1 TAB PO TID BLADDER (Reported) Cephalexin 500 MG CAPSULE 500 MG PO Q6 UTI Cholecalciferol (Vitamin D3) (Vitamin D3) 1,000 UNIT CAPSULE 1 CAP PO DAILY SUPP (Reported) Cranberry 500 MG CAPSULE 1 PO D SUPP (Reported) Dimethyl Fumarate (Tecfidera) 240 MG CAPSULE.DR 1 PO BID MS (Reported) Escitalopram Oxalate 10 MG TABLET 1 TAB PO DAILY DEPRESSION (Reported) Ferrous Sulfate 325 MG (65 MG IRON) TABLET 1 TAB PO BID SUPP (Reported) Multivitamin (Daily Multiple Vitamin) 1 EACH TABLET 1 TAB PO DAILY SUPP ( Reported) Sennosides (Senna) 8.6 MG TABLET 2 TAB PO BID CONSTIPATION (Reported) Compliance With Home Meds: GOOD Past History Medical History Neurological: multiple sclerosis EENT: NONE Cardiovascular: NONE Respiratory: NONE Gastrointestinal: NONE Hepatic: NONE Renal: NONE Musculoskeletal: NONE Psychiatric: NONE Endocrine: NONE Blood Disorders: NONE Cancer(s): NONE ACCOUNT SERVICE ASSOCIATE/Reproductive: NONE History of MRSA: No History of VRE: No History of CDIFF: No Isolation History: Standard Surgical History Surgical History: buttock flap placement on 04/23/16 Past Family/Social History Family History Relations & Conditions if any Relation not specified for: *No pertinent family history Psychosocial History Where do you live? Assisted Facility Smoking Status: Never Smoked ETOH Use: denies use Functional Ability Ambulation: wheelchair dependent Exam & Diagnostic Data Diagnostic Data EKG Results Done one 04/19/2016: Sinus Tachycardia with no ST-T wave changes. Core Measures/Miscellaneous Cerebrovascular Accident CVA/TIA Diagnosis: No Severe Sepsis Severe Sepsis Present: No Septic Shock Septic Shock Present: No Miscellaneous Documentation Patient sees these Specialists Plastic Surgery: Dr. Kline Level of Patient Care: General Medicine Consults Needed: Consulting Specialty: Plastic Surgery Consulting Physician: Dr. Kline
--- NOTE | 2016-05-02 07:58 | PN- Housestaff ---
See Addendum Subjective Follow-up For: MS UTI Subjective: Patient seen and examined at bedside. She is in no acute distress with no new complaints. Denies any pain or fatigue. Review of Systems Constitutional: Reports: see HPI. Objective Last 24 Hrs of Vital Signs/I&O Vital Signs Date Time Temp Pulse Resp B/P Pulse O2 O2 Flow FiO2 Ox Delivery Rate 05/02 0638 97.6 96 20 108/72 99 Room Air 05/01 2219 98.1 114 18 100/68 100 05/01 1449 98.3 130 20 104/62 100 Room Air Intake & Output 05/02 1600 05/02 0800 05/02 0000 Intake Total 240 540 Output Total 15 Balance 225 540 Intake, IV 300 Intake, Oral 240 240 Output, 15 Drainage Physical Exam General Appearance: Alert, Oriented X3 Other Physical Findings: Skin: No Rashes, No Breakdown HEENT: Atraumatic, PERRLA Neck: Supple Cardiovascular: Normal S1, Normal S2, tachycardic Lungs: Clear to Auscultation, Normal Air Movement Abdomen: Normal Bowel Sounds, Soft, No Tenderness Extremities: No Clubbing, No Cyanosis, surgical wound is dry and intact. Current Medications: Current Medications Sig/Tim Start time Last Medication Dose Route Stop Time Status Admin Acetaminophen 650 MG Q6P PRN 04/23 2115 AC PO Baclofen 10 MG TID 04/23 2200 AC 05/01 PO 2125 Cephalexin 500 MG Q6 04/30 0600 AC 05/02 PO 0534 Escitalopram Oxalate 10 MG DAILY 04/24 1000 AC 05/01 PO 0905 Ferrous Sulfate 325 MG DAILY 04/29 1325 AC 05/01 PO 0905 Heparin Sodium 5,000 UNIT Q8 04/24 0600 DC 05/01 (Porcine) SC 1326 Sodium Chloride 1,000 ML Q10H 04/30 1445 DC 05/01 IV 05/01 1043 0031 Last 24 Hrs of Lab/Julien Results Last 24 Hrs of Labs/Mics: Laboratory Tests 05/01/16 1240: Anion Gap 7, Estimated GFR > 60, BUN/Creatinine Ratio 14.0, CBC w Diff NO MAN DIFF REQ, RBC 2.73 L, MCV 78.6 L, MCH 24.9 L, RDW 18.5 H, MPV 8.1, Gran % 83.3 H, Lymphocytes % 9.6 L, Monocytes % 5.6, Eosinophils % 1.1, Basophils % 0.4, Absolute Granulocytes 6.3, Absolute Lymphocytes 0.7 L, Absolute Monocytes 0.4, Absolute Eosinophils 0.1, Absolute Basophils 0, PUBS MCHC 31.7 L Assessment/Plan Assessment: Ms. Crowder is a 41-year-old female a past history of multiple sclerosis who was evaluated after placement of a buttock flap for the treatment of decubitus ulcer by Dr. Strange. She is being managed on general medicine floor for finding of long-term placement. #UTI Patient was febrile last evening and tachycardic. Urine analysis from 04/27 showed positivity for urine nitrite as well as moderate leukocyte esterase. Urine culture positive for gram-negative rods susceptibilities and identification to follow and will tailor antibiotics appropriate. Given a one-time dose of vancomycin and ceftazidime. We'll also begin the patient on ceftriaxone. 1000 g daily IV. UC + for razo sensitive E Coli. We naty. change the antibiotics to Cephalexin 500 mg PO Q6. Continue cephalexin 500 mg by mouth every 6. Follow CBC today, WBC was trending down yest acute drop in H&H * Yest her Hb dropped to 6.8/21.5 - received one unit of transfusion * Stool Guiac is requested * If keeps dropping further considering CT abdomen in view of retroperitoneal bleed. * Follow repeat her CBC today #Hypokalemia - Resolved Patient is currently symptomatic. Patient had a potassium level of 3.5 but improved to 4.7 on 05/01 after a one-time dose of PO Potassium 40MEQ. Follow repeat BMP in the a.m. #Management of decubitus washed with hydrogen peroxide daily. Currently dressing in place. Monitor for any fever or signs of infection. Daily wound care instructions: : Xeroform + D5D to Incision QD. QD wipe H2O2 on incision plus prn with BM's. Keep drain in place till patient sees Dr Kline in three weeks. Follow culture sensitivities taken from the operating room. Rule out osteomyelitis. #Multiple sclerosis Currently on baclofen. Continue to manage with tecfidera. Continue Lexapro for mental health. #Anemia Likely from iron deficiency anemia or anemia of chronic disease. HEB on 04/26/2016: 7.8. Repeat CBC to monitor H/H: 6.8/21.5 #DVT prophylaxis Heparin. Problem List: 1. Multiple sclerosis 2. Multiple sclerosis 3. UTI (urinary tract infection) 4. Sacral decubitus ulcer Pain Ratin Pain Location: Sacrum Pain Goal: Pain 4 or less Pain Plan: tylenol PRN Tomorrow's Labs & Rationales: CBC to monitor her H&H in the setting of acute drop BEP to monitor any cocurrent electrolyte abnormalitis Consulting Request: Consulting Specialty: Plastic Surgery Consulting Physician: Dr. Eliud Kline
[2016-05-02 09:15] LABS: ABSOLUTE BASOPHIL COUNT 0 /CUMM (0.0-0.2); ABSOLUTE EOSINOPHIL COUNT 0.1 /CUMM (0.0-0.7); ABSOLUTE GRANULOCYTE CT 4.8 /CUMM (1.4-6.5); ABSOLUTE LYMPH COUNT 1.3 /CUMM (1.2-3.4); ABSOLUTE MONOCYTE COUNT 0.5 /CUMM (0.10-0.60); BASOPHIL % 0.2 % (0.0-2.0); EOSINOPHIL % 1.8 % (0-5); GRANULOCYTE % 71.4 % (42.2-75.2); MEAN CORPUSCULAR HGB 25.4 PG (27.0-31.0); MEAN CORPUSCULAR HGB CONC 32.2 G/DL (33.0-37.0); MEAN CORPUSCULAR VOLUME 78.8 FL (81.0-99.0); MEAN PLATELET VOLUME 7.5 FL (7.4-10.4); PLATELET COUNT 343 /CUMM (130-400); RBC DISTRIBUTION WIDTH 17.7 % (11.5-14.5); WHITE BLOOD CELL COUNT 6.7 /CUMM (4.8-10.8)
[2016-05-02] MEDS ORDERED: CEPHALEXIN500 M3 PO (10:26)
[2016-05-02 10:31] LABS: HEMATOCRIT 27.8 % (37-47); RED BLOOD CELL CT 3.52 /CUMM (4.20-5.40)
[2016-05-02 12:59] VITALS: BP 108/72
== END 2016-05-02 13:22 | DRG 580 ==
LOC: ENRESERVDT → ENRESERVTM → SDA 03:10 → UNDOADMIN 03:10 → DELPENDDIS 04-23 03:15 → SDA 04-23 03:15 → 2NB 04-23 03:15 → ENPENDDIS 04-23 03:15 → PACUH 04-23 18:01 → 2NB 04-23 20:23
PROVIDERS: Internal Medicine; Internal Medicine Endocrinology, Diabetes & Metabolism; Internal Medicine Interventional Cardiology; Student in an Organized Health Care Education/Training Program; ADMIT Surgery Plastic and Reconstructive Surgery
PROC: 0KXP0ZZ Transfer Left Hip Muscle, Open Approach (ICD-10-PCS; principal; 2016-04-23)
PROC: 0QB10ZZ Excision of Sacrum, Open Approach (ICD-10-PCS; principal; 2016-04-23)
PROC: 0JD70ZZ Extraction of Back Subcutaneous Tissue and Fascia, Open Approach (ICD-10-PCS; principal; 2016-04-23)
PROC: 30233N1 Transfusion of Nonautologous Red Blood Cells into Peripheral Vein, Percutaneous Approach (ICD-10-PCS; 2016-05-01)
DX: L89.159 Pressure ulcer of sacral region, unspecified stage (principal); N39.0 Urinary tract infection, site not specified; D62 Acute posthemorrhagic anemia; G35 Multiple sclerosis; R15.9 Full incontinence of feces; R32 Unspecified urinary incontinence; D64.9 Anemia, unspecified
CPT/HCPCS: 2NBSP; 87070; 87075; SDA; 36415; 81001; 82436; 86920; 87040; 87086; 87804; 87804-59; 88307; 93005; 93010; J0131; J0690; J0696; J0713; J1644; J2405; J3370; J7060; P9016